=== PATIENT | male | born 1980 | race Caucasian/White ===

== ENCOUNTER 2020-06-06 22:02 | Emergency (ER) | payer MEDICAID ==
[~2020-06-06] VITALS: Ht 170.2 cm; Wt 95.4 kg
[2020-06-06] MEDS ORDERED: SOFO1TAB PO (22:38)
[2020-06-06 23:17] LABS: BASOPHILS % (AUTO) 0.6 % (0.0-2.0); EOSINOPHILS % (AUTO) 0.5 % (1.0-6.0); HEMATOCRIT 44.4 % (41-53); HEMOGLOBIN 15.1 g/dL (13.5-17.5); LYMPHOCYTES # (AUTO) 1.6 K/uL (1.0-4.8); LYMPHOCYTES % (AUTO) 21.1 % (22.0-44.0); MEAN CORPUSCULAR HEMOGLOBIN 31.3 pg (26.0-34.0); MEAN CORPUSCULAR HGB CONC 34.1 G/dL (31.0-37.0); MEAN CORPUSCULAR VOLUME 92 fL (80-100); MONOCYTES # (AUTO) 0.7 K/uL (0.1-1.0); MONOCYTES % (AUTO) 8.8 % (2.0-9.0); NEUTROPHILS # (AUTO) 5.3 K/uL (1.8-7.7); PLATELET COUNT (AUTO) 232 K/uL (150-450); RED BLOOD CELL COUNT(AUTO) 4.84 MIL/uL (4.50-5.90); RED CELL DISTRIBUTION WIDTH 13.7 % (11.5-14.5)
[2020-06-06 23:26] LABS: ANION GAP 8 mmol/L (8-16); CALCIUM, TOTAL 8.9 mg/dL (8.8-10.5); CARBON DIOXIDE 29 mmol/L (22-29); CHLORIDE 102 mmol/L (98-107); CREATININE 0.99 mg/dL (0.60-1.30); GLOMERULAR FILTR. RATE CALC > 60 mL/min (>60); GLUCOSE,RANDOM 105 mg/dL (70-110); POTASSIUM 3.9 mmol/L (3.5-5.1); SODIUM SERUM 139 mmol/L (136-145); UREA NITROGEN, BLOOD 14 mg/dL (7-18)
[2020-06-06 23:32] LABS: ALANINE AMINOTRANSFERASE 66 U/L (12-78); ALBUMIN 4.3 g/dL (3.4-5.0); ALKALINE PHOSPHATASE 92 U/L (46-116); ASPARTATE AMINOTRANSFERASE 51 U/L (15-37); BILIRUBIN,TOTAL 0.5 mg/dL (0.1-1.0); LIPASE 132 U/L (73-393); TOTAL PROTEIN, SERUM 8.2 g/dL (6.4-8.2)
[2020-06-06 23:40] LABS: B-TYPE NATRIURETIC PEPTIDE < 5 pg/mL (0-100)
[2020-06-07 01:29] VITALS: BP 145/89
== END 2020-06-07 02:29 | disposition home or self-care (01) ==
LOC: EMS 22:02
DX: R11.2 Nausea with vomiting, unspecified (principal); F22 Delusional disorders; F17.210 Nicotine dependence, cigarettes, uncomplicated; F11.90 Opioid use, unspecified, uncomplicated
CPT/HCPCS: 71045; 80053; 82550; 83690; 83880; 84484; 85025; 93005; 99285; G0480

== ENCOUNTER 2020-08-01 15:18 | Inpatient (IN) | payer MEDICAID ==
[~2020-08-01] VITALS: Ht 170.2 cm; Wt 90.2 kg
[~2020-08-01 15:18] MED LIST: SOFO1TAB PO
[2020-08-01] MEDS ORDERED: LORazepam 2 MG TABLET PO ONE (18:00)
[2020-08-01 19:19] LABS: BASOPHILS % (AUTO) 0.4 % (0.0-2.0); EOSINOPHILS % (AUTO) 1.2 % (1.0-6.0); HEMATOCRIT 44.9 % (41-53); HEMOGLOBIN 15.1 g/dL (13.5-17.5); LYMPHOCYTES # (AUTO) 2.3 K/uL (1.0-4.8); LYMPHOCYTES % (AUTO) 20.9 % (22.0-44.0); MEAN CORPUSCULAR HEMOGLOBIN 30.7 pg (26.0-34.0); MEAN CORPUSCULAR HGB CONC 33.7 G/dL (31.0-37.0); MEAN CORPUSCULAR VOLUME 91 fL (80-100); MONOCYTES # (AUTO) 0.9 K/uL (0.1-1.0); MONOCYTES % (AUTO) 8.4 % (2.0-9.0); NEUTROPHILS # (AUTO) 7.6 K/uL (1.8-7.7); NEUTROPHILS % (AUTO) 69.1 % (40.0-70.0); PLATELET COUNT (AUTO) 304 K/uL (150-450); RED BLOOD CELL COUNT(AUTO) 4.92 MIL/uL (4.50-5.90); RED CELL DISTRIBUTION WIDTH 13.7 % (11.5-14.5)
[2020-08-01 19:28] LABS: ANION GAP 12 mmol/L (8-16); CALCIUM, TOTAL 9.4 mg/dL (8.8-10.5); CARBON DIOXIDE 29 mmol/L (22-29); CHLORIDE 104 mmol/L (98-107); CREATININE 1.18 mg/dL (0.60-1.30); GLOMERULAR FILTR. RATE CALC > 60 mL/min (>60); GLUCOSE,RANDOM 107 mg/dL (70-110); POTASSIUM 4.8 mmol/L (3.5-5.1); SODIUM SERUM 145 mmol/L (136-145); UREA NITROGEN, BLOOD 18 mg/dL (7-18)
[2020-08-01] MEDS ORDERED: OLANZapine 5 MG TABLET PO ONE (19:30)
[2020-08-01 19:33] LABS: ALANINE AMINOTRANSFERASE 82 U/L (12-78); ALBUMIN 4.6 g/dL (3.4-5.0); ALKALINE PHOSPHATASE 103 U/L (46-116); ASPARTATE AMINOTRANSFERASE 38 U/L (15-37); BILIRUBIN,TOTAL 0.9 mg/dL (0.1-1.0); TOTAL PROTEIN, SERUM 8.4 g/dL (6.4-8.2)
[2020-08-01] MEDS ORDERED: HALOPERIDOL 5 MG TABLET PO PRN (19:45)
[2020-08-01] MEDS ORDERED: ZOLPIDEM TARTRATE 10 MG TABLET PO PRN (19:45)
[2020-08-01 20:46] LABS: APPEARANCE,URINE CLEAR (CLEAR); BILIRUBIN,URINE NEGATIVE (NEGATIVE); GLUCOSE, URINE (UA) NEGATIVE (NEGATIVE); KETONES,URINE NEGATIVE (NEGATIVE); LEUKOCYTE ESTERASE ,URINE NEGATIVE (NEGATIVE); NITRATE,URINE NEGATIVE (NEGATIVE); OCCULT BLOOD,URINE NEGATIVE (NEGATIVE); PROTEIN,URINE NEGATIVE (NEGATIVE)
[2020-08-01] MEDS ORDERED: LORazepam 2 MG/ML VIAL IM ONE (22:00)
[2020-08-01] MEDS ORDERED: DiphenhydrAMINE HCL 50 MG/ML VIAL IM ONE (22:00)
[2020-08-01] MEDS ORDERED: HALOPERIDOL LACTATE 5 MG/ML VIAL IM ONE (22:00)
[2020-08-01 22:42] LABS: COVID AG,FIA SOURCE NASOPHARYNGEAL
[2020-08-02] MEDS: LORazepam 2 MG TABLET PO PRN ×2 (07:02→12:22)
[2020-08-02] MEDS ORDERED: BENZOCAINE/MENTHOL LOZENGE PO PRN (10:00)
[2020-08-02] MEDS ORDERED: PETROLATUM,WHITE 28 GM JELLY TP PRN (10:00)
[2020-08-02] MEDS ORDERED: DOCUSATE SODIUM 100 MG CAPSULE PO PRN (10:00)
[2020-08-02] MEDS ORDERED: MAG HYDROX/AL HYDROX/SIMETH ES 30 ML SUSPENSION UDCUP PO PRN (10:00)
[2020-08-02] MEDS ORDERED: BACITRACIN 28 GM OINTMENT TP PRN (10:00)
[2020-08-02] MEDS ORDERED: OMEPRAZOLE 20 MG CAPSULE PO PRN (10:00)
[2020-08-02] MEDS ORDERED: MAGNESIUM HYDROXIDE SUSPENSION 30 ML UDCUP PO PRN (10:00)
[2020-08-02] MEDS ORDERED: ALBUTEROL SULFATE HFA 90 MCG/PUFF 8 GM INHALER IH PRN (10:00)
[2020-08-02] MEDS ORDERED: CloNIDine HCL 0.1 MG TABLET PO PRN (10:00)
[2020-08-02] MEDS ORDERED: ACETAMINOPHEN 325 MG TABLET PO PRN (10:00)
[2020-08-02] MEDS ORDERED: LOPERAMIDE HCL 2 MG CAPSULE PO PRN (10:00)
[2020-08-02] MEDS ORDERED: ONDANSETRON HCL 4 MG TABLET PO PRN (10:00)
[2020-08-02 10:31] VITALS: BP 119/75
[2020-08-02] MEDS: IBUPROFEN 600 MG TABLET PO PRN (12:21)
[2020-08-02 16:21] VITALS: BP 103/75
[2020-08-03 06:12] VITALS: BP 115/84
[2020-08-03 07:50] LABS: CHOL/HDL RATIO 4.6 (4.2-7.3)
[2020-08-03 08:25] VITALS: BP 103/64
[2020-08-03 16:32] VITALS: BP 112/69
[2020-08-04 08:19] VITALS: BP 110/66
[2020-08-04 16:12] VITALS: BP 109/65
[2020-08-04] MEDS: IBUPROFEN 600 MG TABLET PO PRN (21:55)
[2020-08-04] MEDS: LORazepam 2 MG TABLET PO PRN (21:55)
[2020-08-05 06:29] VITALS: BP 110/68
[2020-08-05 08:32] VITALS: BP 115/71
[2020-08-05] MEDS: LORazepam 2 MG TABLET PO PRN ×2 (15:27→20:33)
[2020-08-05 16:21] VITALS: BP 126/61
[2020-08-06 06:08] VITALS: BP 110/81
[2020-08-06 08:20] VITALS: BP 115/72
[2020-08-06 16:19] VITALS: BP 113/76
== END 2020-08-06 20:14 | disposition home or self-care (01) | DRG 750 ==
LOC: EMS 15:23 → B3A 22:00
PROVIDERS: ADMIT Psychiatry & Neurology Psychiatry; ATTEND Psychiatry & Neurology Psychiatry
DX: F25.9 Schizoaffective disorder, unspecified (principal); F22 Delusional disorders; R45.851 Suicidal ideations; F32.9 Major depressive disorder, single episode, unspecified; B19.20 Unspecified viral hepatitis C without hepatic coma; F17.210 Nicotine dependence, cigarettes, uncomplicated; F41.9 Anxiety disorder, unspecified; G47.00 Insomnia, unspecified; K59.00 Constipation, unspecified; F15.90 Other stimulant use, unspecified, uncomplicated; Z20.822 Contact with and (suspected) exposure to COVID-19; Z79.899 Other long term (current) drug therapy
CPT/HCPCS: 80053; 81003; 85025; 87426; 99285; G0480; J1200; J1630; J2060

== ENCOUNTER 2020-08-20 09:06 | Emergency (ER) | payer MEDICAID ==
[~2020-08-20] VITALS: Ht 167.6 cm; Wt 100.0 kg
[2020-08-20] MEDS ORDERED: OXYC20TA58 PO (09:28)
[2020-08-20] MEDS ORDERED: CLON-592 PO (09:28)
[2020-08-20] MEDS ORDERED: IBUP-2759 PO (09:28)
[2020-08-20 10:43] LABS: BASOPHILS % (AUTO) 0.3 % (0.0-2.0); EOSINOPHILS % (AUTO) 0.5 % (1.0-6.0); HEMATOCRIT 43.9 % (41-53); HEMOGLOBIN 14.9 g/dL (13.5-17.5); LYMPHOCYTES % (AUTO) 21.2 % (22.0-44.0); MEAN CORPUSCULAR HEMOGLOBIN 30.3 pg (26.0-34.0); MEAN CORPUSCULAR VOLUME 89 fL (80-100); MONOCYTES # (AUTO) 0.9 K/uL (0.1-1.0); MONOCYTES % (AUTO) 9.3 % (2.0-9.0); NEUTROPHILS # (AUTO) 6.5 K/uL (1.8-7.7); NEUTROPHILS % (AUTO) 68.7 % (40.0-70.0); PLATELET COUNT (AUTO) 272 K/uL (150-450); RED BLOOD CELL COUNT(AUTO) 4.94 MIL/uL (4.50-5.90)
[2020-08-20 10:53] LABS: ANION GAP 12 mmol/L (8-16); CALCIUM, TOTAL 9.1 mg/dL (8.8-10.5); CARBON DIOXIDE 24 mmol/L (22-29); CHLORIDE 100 mmol/L (98-107); CREATININE 0.88 mg/dL (0.60-1.30); GLOMERULAR FILTR. RATE CALC > 60 mL/min (>60); GLUCOSE,RANDOM 104 mg/dL (70-110); POTASSIUM 3.7 mmol/L (3.5-5.1); SODIUM SERUM 136 mmol/L (136-145); UREA NITROGEN, BLOOD 12 mg/dL (7-18)
[2020-08-20 10:57] LABS: ALANINE AMINOTRANSFERASE 87 U/L (12-78); ALBUMIN 4.9 g/dL (3.4-5.0); ALKALINE PHOSPHATASE 96 U/L (46-116); ASPARTATE AMINOTRANSFERASE 57 U/L (15-37); BILIRUBIN,TOTAL 1.7 mg/dL (0.1-1.0); TOTAL PROTEIN, SERUM 8.3 g/dL (6.4-8.2)
[2020-08-20 12:12] LABS: COVID AG,FIA SOURCE NASOPHARYNGEAL
[2020-08-20 14:24] VITALS: BP 138/87
== END 2020-08-20 14:29 | disposition home or self-care (01) ==
LOC: EMS 09:17
DX: F25.9 Schizoaffective disorder, unspecified (principal); Z20.822 Contact with and (suspected) exposure to COVID-19
CPT/HCPCS: 36415; 80053; 85025; 87426; 99284; G0480

== ENCOUNTER 2020-08-21 20:57 | Emergency (ER) | payer MEDICAID ==
[~2020-08-21] VITALS: Ht 167.6 cm; Wt 88.6 kg
[~2020-08-21 20:57] MED LIST changes: +CLON-592 PO; +IBUP-2759 PO; +OXYC20TA58 PO; -SOFO1TAB PO
[2020-08-21 21:00] VITALS: BP 145/80
[2020-08-21] MEDS ORDERED: OLANZapine 5 MG TABLET PO ONE (21:30)
== END 2020-08-21 21:55 | disposition home or self-care (01) ==
LOC: EMS 20:59
DX: F29 Unspecified psychosis not due to a substance or known physiological condition (principal); F41.9 Anxiety disorder, unspecified; F14.90 Cocaine use, unspecified, uncomplicated; F19.90 Other psychoactive substance use, unspecified, uncomplicated; F11.90 Opioid use, unspecified, uncomplicated
CPT/HCPCS: 99284; Z7502; Z7610

== ENCOUNTER 2020-12-24 19:31 | Inpatient (IN) | payer MEDICAID ==
[~2020-12-24] VITALS: Ht 167.6 cm; Wt 84.0 kg
[2020-12-24] MEDS ORDERED: SERT-158 PO (19:46)
[2020-12-24] MEDS ORDERED: QUET25TA PO (19:46)
[2020-12-24 21:23] LABS: BASOPHILS % (AUTO) 0.5 % (0.0-2.0); EOSINOPHILS % (AUTO) 0.7 % (1.0-6.0); HEMATOCRIT 44.2 % (41-53); HEMOGLOBIN 14.9 g/dL (13.5-17.5); LYMPHOCYTES % (AUTO) 27.2 % (22.0-44.0); MEAN CORPUSCULAR HEMOGLOBIN 31.1 pg (26.0-34.0); MEAN CORPUSCULAR HGB CONC 33.8 G/dL (31.0-37.0); MEAN CORPUSCULAR VOLUME 92 fL (80-100); MONOCYTES # (AUTO) 0.6 K/uL (0.1-1.0); MONOCYTES % (AUTO) 8.6 % (2.0-9.0); NEUTROPHILS # (AUTO) 4.5 K/uL (1.8-7.7); PLATELET COUNT (AUTO) 285 K/uL (150-450); RED CELL DISTRIBUTION WIDTH 13.8 % (11.5-14.5)
[2020-12-24 21:34] LABS: ANION GAP 13 mmol/L (8-16); CARBON DIOXIDE 26 mmol/L (22-29); CHLORIDE 102 mmol/L (98-107); CREATININE 1.21 mg/dL (0.60-1.30); GLOMERULAR FILTR. RATE CALC > 60 mL/min (>60); GLUCOSE,RANDOM 155 mg/dL (70-110); POTASSIUM 4.2 mmol/L (3.5-5.1); SODIUM SERUM 141 mmol/L (136-145); UREA NITROGEN, BLOOD 14 mg/dL (7-18)
[2020-12-24 21:40] LABS: ALANINE AMINOTRANSFERASE 43 U/L (12-78); ALBUMIN 4.5 g/dL (3.4-5.0); ALKALINE PHOSPHATASE 82 U/L (46-116); ASPARTATE AMINOTRANSFERASE 35 U/L (15-37); BILIRUBIN,TOTAL 0.8 mg/dL (0.1-1.0)
[2020-12-24] MEDS ORDERED: HALOPERIDOL LACTATE 5 MG/ML VIAL IM ONE (22:15)
[2020-12-24] MEDS ORDERED: LORazepam 2 MG/ML VIAL IM ONE (22:15)
[2020-12-24] MEDS ORDERED: ZOLPIDEM TARTRATE 10 MG TABLET PO PRN (22:15)
[2020-12-24] MEDS: LORazepam 2 MG TABLET PO PRN (22:48)
[2020-12-24] MEDS: HALOPERIDOL 5 MG TABLET PO PRN (22:48)
[2020-12-24 23:25] LABS: APPEARANCE,URINE CLEAR (CLEAR); BILIRUBIN,URINE NEGATIVE (NEGATIVE); GLUCOSE, URINE (UA) NEGATIVE (NEGATIVE); KETONES,URINE NEGATIVE (NEGATIVE); LEUKOCYTE ESTERASE ,URINE NEGATIVE (NEGATIVE); NITRATE,URINE NEGATIVE (NEGATIVE); OCCULT BLOOD,URINE NEGATIVE (NEGATIVE); PH,URINE 5.5 (5.0-8.0); PROTEIN,URINE NEGATIVE (NEGATIVE); UROBILINOGEN,URINE 0.2 mg/dL (<=1.0)
[2020-12-24 23:29] LABS: AMPHET/METH SCREEN,URINE POSITIVE (NEGATIVE); BARBITURATE SCREEN, URINE NEGATIVE (NEGATIVE); BENZODIAZEPINES SCREEN,URINE NEGATIVE (NEGATIVE); CANNABINOID SCREEN,URINE NEGATIVE (NEGATIVE); COCAINE SCREEN,URINE NEGATIVE (NEGATIVE); METHADONE SCREEN, URINE NEGATIVE (NEGATIVE); OPIATE SCREEN,URINE NEGATIVE (NEGATIVE)
[2020-12-24 23:31] LABS: PHENCYCLIDINE SCREEN,URINE NEGATIVE (NEGATIVE)
[2020-12-25] MEDS ORDERED: LORazepam 2 MG/ML VIAL IM ONE (00:15)
[2020-12-25] MEDS ORDERED: HALOPERIDOL LACTATE 5 MG/ML VIAL IM ONE (00:15)
[2020-12-25] MEDS ORDERED: DiphenhydrAMINE HCL 50 MG/ML VIAL IM ONE (00:15)
[2020-12-25 02:04] LABS: COVID AG,FIA SOURCE NASOPHARYNGEAL
[2020-12-25 04:33] LABS: CHOL/HDL RATIO 3.5 (4.2-7.3); CHOLESTEROL 182 mg/dL (131-200); HDL CHOLESTEROL 52 mg/dL (40-60); LDL CHOL (CALC.) 121 mg/dL (0-130); TRIGLYCERIDES 45 mg/dL (15-150)
[2020-12-25 12:53] VITALS: BP 135/79
[2020-12-25 18:29] VITALS: BP 126/81
[2020-12-26 08:50] VITALS: BP 97/64
[2020-12-26] MEDS ORDERED: ACETAMINOPHEN 325 MG TABLET PO PRN (15:30)
[2020-12-26] MEDS ORDERED: MAG HYDROX/AL HYDROX/SIMETH ES 30 ML SUSPENSION UDCUP PO PRN (15:30)
[2020-12-26] MEDS ORDERED: PROMETHAZINE HCL 25 MG TABLET PO PRN (15:30)
[2020-12-26] MEDS ORDERED: LOPERAMIDE HCL 2 MG CAPSULE PO PRN (15:30)
[2020-12-26] MEDS ORDERED: GuaiFENesin/D-METHORPHAN [SUGAR-FREE] 200-20MG/10 ML SYRUP UDCUP PO PRN (15:30)
[2020-12-26] MEDS ORDERED: HydrOXYzine PAMOATE 50 MG CAPSULE PO PRN (15:30)
[2020-12-26] MEDS ORDERED: OMEGA-3/DHA/EPA/FISH OIL 1,000 MG CAPSULE PO ONE (15:30)
[2020-12-26] MEDS ORDERED: MAGNESIUM HYDROXIDE SUSPENSION 30 ML UDCUP PO PRN (15:30)
[2020-12-26] MEDS ORDERED: NALTREXONE HCL 50 MG TABLET PO ONE (15:30)
[2020-12-26] MEDS ORDERED: TUBERCULIN, PURIFIED PROTEIN DERIVATIVE 5 TU/0.1 ML SYRINGE ID ONE (15:30)
[2020-12-26 16:22] VITALS: BP 102/67
[2020-12-26] MEDS: THIAMINE 100 MG TABLET PO SCH (16:25)
[2020-12-26] MEDS: MELATONIN 5 MG TABLET PO SCH (20:44)
[2020-12-26] MEDS ORDERED: OLANZapine 5 MG RAPDIS TABLET PO SCH (21:00)
[2020-12-27 08:00] VITALS: BP 137/77
[2020-12-27] MEDS ORDERED: BuPROPion HCL XL 150 MG ER TABLET PO SCH (09:00)
[2020-12-27] MEDS: NALTREXONE HCL 50 MG TABLET PO SCH (10:38)
[2020-12-27] MEDS: MULTIVITAMINS WITH MINERALS, THERAPEUTIC TABLET PO SCH (10:38)
[2020-12-27] MEDS: THIAMINE 100 MG TABLET PO SCH ×2 (10:38→16:15)
[2020-12-27] MEDS: FOLIC ACID 1 MG TABLET PO SCH (10:38)
[2020-12-27] MEDS: OMEGA-3/DHA/EPA/FISH OIL 1,000 MG CAPSULE PO SCH (10:38)
[2020-12-27] MEDS: HALOPERIDOL 5 MG TABLET PO PRN (16:15)
[2020-12-27 16:58] VITALS: BP 104/62
[2020-12-27] MEDS: MELATONIN 5 MG TABLET PO SCH (20:11)
[2020-12-27] MEDS: DIVALPROEX SODIUM 500 MG ER TABLET PO SCH (20:11)
[2020-12-27] MEDS: OLANZapine 10 MG RAPDIS TABLET PO SCH (20:11)
[2020-12-28 08:00] VITALS: BP 105/64
[2020-12-28] MEDS: FOLIC ACID 1 MG TABLET PO SCH (09:28)
[2020-12-28] MEDS: NALTREXONE HCL 50 MG TABLET PO SCH (09:28)
[2020-12-28] MEDS: THIAMINE 100 MG TABLET PO SCH ×2 (09:28→16:46)
[2020-12-28] MEDS: OMEGA-3/DHA/EPA/FISH OIL 1,000 MG CAPSULE PO SCH (09:29)
[2020-12-28] MEDS: MULTIVITAMINS WITH MINERALS, THERAPEUTIC TABLET PO SCH (09:29)
[2020-12-28] MEDS: LORazepam 2 MG TABLET PO PRN (09:31)
[2020-12-28 16:18] VITALS: BP 122/78
[2020-12-28] MEDS: HALOPERIDOL 5 MG TABLET PO PRN (16:46)
[2020-12-28] MEDS: MELATONIN 5 MG TABLET PO SCH (20:24)
[2020-12-28] MEDS: OLANZapine 10 MG RAPDIS TABLET PO SCH (20:24)
[2020-12-28] MEDS: DIVALPROEX SODIUM 500 MG ER TABLET PO SCH (20:24)
[2020-12-29] MEDS: NALTREXONE HCL 50 MG TABLET PO SCH (08:13)
[2020-12-29] MEDS: FOLIC ACID 1 MG TABLET PO SCH (08:13)
[2020-12-29] MEDS: MULTIVITAMINS WITH MINERALS, THERAPEUTIC TABLET PO SCH (08:13)
[2020-12-29] MEDS: THIAMINE 100 MG TABLET PO SCH ×2 (08:13→18:21)
[2020-12-29] MEDS: OMEGA-3/DHA/EPA/FISH OIL 1,000 MG CAPSULE PO SCH (08:13)
[2020-12-29] MEDS: LORazepam 2 MG TABLET PO PRN ×2 (08:17→18:22)
[2020-12-29] MEDS: HALOPERIDOL 5 MG TABLET PO PRN (08:17)
[2020-12-29 08:33] VITALS: BP 114/74
[2020-12-29 16:44] VITALS: BP 143/95
[2020-12-29] MEDS: DIVALPROEX SODIUM 500 MG ER TABLET PO SCH (21:44)
[2020-12-29] MEDS: MELATONIN 5 MG TABLET PO SCH (21:45)
[2020-12-29] MEDS: OLANZapine 10 MG RAPDIS TABLET PO SCH (21:45)
[2020-12-30 08:34] VITALS: BP 138/86
[2020-12-30] MEDS: HALOPERIDOL 5 MG TABLET PO PRN (08:39)
[2020-12-30] MEDS: NALTREXONE HCL 50 MG TABLET PO SCH (08:39)
[2020-12-30] MEDS: OMEGA-3/DHA/EPA/FISH OIL 1,000 MG CAPSULE PO SCH (08:39)
[2020-12-30] MEDS: FOLIC ACID 1 MG TABLET PO SCH (08:39)
[2020-12-30] MEDS: THIAMINE 100 MG TABLET PO SCH ×2 (08:39→16:24)
[2020-12-30] MEDS: MULTIVITAMINS WITH MINERALS, THERAPEUTIC TABLET PO SCH (08:39)
[2020-12-30] MEDS: LORazepam 2 MG TABLET PO PRN (08:46)
[2020-12-30 17:02] VITALS: BP 110/73
[2020-12-30] MEDS: DIVALPROEX SODIUM 500 MG ER TABLET PO SCH (20:40)
[2020-12-30] MEDS: MELATONIN 5 MG TABLET PO SCH (20:40)
[2020-12-30] MEDS: OLANZapine 10 MG RAPDIS TABLET PO SCH (20:42)
[2020-12-31 08:19] VITALS: BP 111/82
[2020-12-31] MEDS: THIAMINE 100 MG TABLET PO SCH ×2 (09:20→16:06)
[2020-12-31] MEDS: LORazepam 2 MG TABLET PO PRN (09:20)
[2020-12-31] MEDS: HALOPERIDOL 5 MG TABLET PO PRN ×2 (09:20→15:53)
[2020-12-31] MEDS: OMEGA-3/DHA/EPA/FISH OIL 1,000 MG CAPSULE PO SCH (09:20)
[2020-12-31] MEDS: MULTIVITAMINS WITH MINERALS, THERAPEUTIC TABLET PO SCH (09:20)
[2020-12-31] MEDS: NALTREXONE HCL 50 MG TABLET PO SCH (09:20)
[2020-12-31] MEDS: FOLIC ACID 1 MG TABLET PO SCH (09:20)
[2020-12-31] MEDS: DIVALPROEX SODIUM 500 MG ER TABLET PO SCH (20:27)
[2020-12-31] MEDS: MELATONIN 5 MG TABLET PO SCH (20:27)
[2020-12-31] MEDS: OLANZapine 10 MG RAPDIS TABLET PO SCH (20:28)
[2021-01-01] MEDS: OMEGA-3/DHA/EPA/FISH OIL 1,000 MG CAPSULE PO SCH (08:08)
[2021-01-01] MEDS: NALTREXONE HCL 50 MG TABLET PO SCH (08:08)
[2021-01-01] MEDS: LORazepam 2 MG TABLET PO PRN (08:08)
[2021-01-01] MEDS: THIAMINE 100 MG TABLET PO SCH ×2 (08:08→16:20)
[2021-01-01] MEDS: FOLIC ACID 1 MG TABLET PO SCH (08:08)
[2021-01-01] MEDS: FLUoxetine HCL 20 MG CAPSULE PO SCH (08:08)
[2021-01-01] MEDS: HALOPERIDOL 5 MG TABLET PO PRN ×2 (08:08→16:20)
[2021-01-01] MEDS: MULTIVITAMINS WITH MINERALS, THERAPEUTIC TABLET PO SCH (08:08)
[2021-01-01 08:27] VITALS: BP 139/88
[2021-01-01 16:18] VITALS: BP 123/76
[2021-01-01] MEDS: MELATONIN 5 MG TABLET PO SCH (20:17)
[2021-01-01] MEDS: DIVALPROEX SODIUM 500 MG ER TABLET PO SCH (20:17)
[2021-01-01] MEDS: OLANZapine 10 MG RAPDIS TABLET PO SCH (20:17)
[2021-01-02] MEDS: THIAMINE 100 MG TABLET PO SCH ×2 (08:31→16:30)
[2021-01-02] MEDS: FOLIC ACID 1 MG TABLET PO SCH (08:31)
[2021-01-02] MEDS: FLUoxetine HCL 20 MG CAPSULE PO SCH (08:31)
[2021-01-02] MEDS: HALOPERIDOL 5 MG TABLET PO PRN ×2 (08:32→16:30)
[2021-01-02] MEDS: OMEGA-3/DHA/EPA/FISH OIL 1,000 MG CAPSULE PO SCH (08:32)
[2021-01-02] MEDS: NALTREXONE HCL 50 MG TABLET PO SCH (08:32)
[2021-01-02] MEDS: LORazepam 2 MG TABLET PO PRN (08:32)
[2021-01-02] MEDS: MULTIVITAMINS WITH MINERALS, THERAPEUTIC TABLET PO SCH (08:32)
[2021-01-02 08:38] VITALS: BP 101/67
[2021-01-02 13:09] LABS: COVID AG,FIA SOURCE NASOPHARYNGEAL
[2021-01-02] MEDS: OLANZapine 10 MG RAPDIS TABLET PO SCH ×2 (20:17→20:35)
[2021-01-02] MEDS: MELATONIN 5 MG TABLET PO SCH ×2 (20:17→20:34)
[2021-01-02] MEDS: DIVALPROEX SODIUM 500 MG ER TABLET PO SCH ×2 (20:18→20:34)
[2021-01-03] MEDS: LORazepam 2 MG TABLET PO PRN (07:58)
[2021-01-03] MEDS: THIAMINE 100 MG TABLET PO SCH ×2 (07:59→16:50)
[2021-01-03] MEDS: FOLIC ACID 1 MG TABLET PO SCH (07:59)
[2021-01-03] MEDS: MULTIVITAMINS WITH MINERALS, THERAPEUTIC TABLET PO SCH (07:59)
[2021-01-03] MEDS: OMEGA-3/DHA/EPA/FISH OIL 1,000 MG CAPSULE PO SCH (07:59)
[2021-01-03] MEDS: NALTREXONE HCL 50 MG TABLET PO SCH (07:59)
[2021-01-03] MEDS: FLUoxetine HCL 20 MG CAPSULE PO SCH (07:59)
[2021-01-03] MEDS ORDERED: OLAN10TA26 PO (15:49)
[2021-01-03] MEDS ORDERED: OMEG-135 PO (15:49)
[2021-01-03] MEDS ORDERED: MELA5TAB40 PO (15:49)
[2021-01-03] MEDS ORDERED: DIVA-80 PO (15:49)
[2021-01-03] MEDS ORDERED: NALT50TA PO (15:49)
[2021-01-03] MEDS ORDERED: FLUO20CA36 PO (15:49)
[2021-01-03] MEDS: HALOPERIDOL 5 MG TABLET PO PRN (16:50)
[2021-01-03] MEDS: MELATONIN 5 MG TABLET PO SCH (20:27)
[2021-01-03] MEDS: OLANZapine 10 MG RAPDIS TABLET PO SCH (20:27)
[2021-01-03] MEDS: DIVALPROEX SODIUM 500 MG ER TABLET PO SCH (20:27)
[2021-01-04] MEDS: FOLIC ACID 1 MG TABLET PO SCH (07:55)
[2021-01-04] MEDS: FLUoxetine HCL 20 MG CAPSULE PO SCH (07:55)
[2021-01-04] MEDS: OMEGA-3/DHA/EPA/FISH OIL 1,000 MG CAPSULE PO SCH (07:55)
[2021-01-04] MEDS: THIAMINE 100 MG TABLET PO SCH (07:55)
[2021-01-04] MEDS: MULTIVITAMINS WITH MINERALS, THERAPEUTIC TABLET PO SCH (07:55)
[2021-01-04] MEDS: NALTREXONE HCL 50 MG TABLET PO SCH (07:56)
[2021-01-04 08:28] VITALS: BP 121/87
== END 2021-01-04 14:30 | disposition home or self-care (01) | DRG 750 ==
LOC: EMS 19:35 → 3EC 12-25 11:09
PROVIDERS: ADMIT Psychiatry & Neurology Psychiatry; ATTEND Psychiatry & Neurology Psychiatry
DX: F25.9 Schizoaffective disorder, unspecified (principal); Z59.0 Homelessness; B19.20 Unspecified viral hepatitis C without hepatic coma; F15.90 Other stimulant use, unspecified, uncomplicated; Z20.822 Contact with and (suspected) exposure to COVID-19; F17.210 Nicotine dependence, cigarettes, uncomplicated; F43.10 Post-traumatic stress disorder, unspecified; Z55.9 Problems related to education and literacy, unspecified; Z65.3 Problems related to other legal circumstances; Z86.16 Personal history of COVID-19; Z91.14 Patient's other noncompliance with medication regimen; Z91.19 Patient's noncompliance with other medical treatment and regimen; Z79.899 Other long term (current) drug therapy
CPT/HCPCS: 80053; 80061; 80164; 81003; 83036; 85025; 99285; G0480; J1200; J1630; J2060; Q9967

== ENCOUNTER 2022-04-25 18:23 | Inpatient (IN) | payer MEDICAID ==
[~2022-04-25] VITALS: Ht 167.6 cm; Wt 100.5 kg
[~2022-04-25 18:23] MED LIST changes: -CLON-592 PO; +DIVA-80 PO; +FLUO20CA36 PO; -IBUP-2759 PO; +MELA5TAB40 PO; +NALT50TA PO; +OLAN10TA26 PO; +OMEG-135 PO; -OXYC20TA58 PO
[2022-04-25] MEDS ORDERED: ZOLPIDEM TARTRATE 10 MG TABLET PO PRN (19:15)
[2022-04-25] MEDS ORDERED: HALOPERIDOL 5 MG TABLET PO PRN (19:15)
[2022-04-25 19:42] VITALS: BP 149/98
[2022-04-25] MEDS ORDERED: INFLUENZA VIRUS VACCINE QVS 2022-23 (6MO+)/PF 60 MCG/0.5 ML SYRINGE IM. ONE (19:45)
[2022-04-25] MEDS ORDERED: HYDR50CA7 PO (20:35)
[2022-04-25] MEDS ORDERED: SERT-162 PO (20:35)
[2022-04-25 20:46] LABS: GLUCOMETER DEV NAME(LOC) POC.BV
[2022-04-25 21:17] VITALS: BP 149/98
[2022-04-26] MEDS: LORazepam 2 MG TABLET PO PRN ×2 (04:14→08:21)
[2022-04-26 08:09] VITALS: BP 154/91
[2022-04-26] MEDS: FLUoxetine HCL 20 MG CAPSULE PO SCH (11:30)
[2022-04-26] MEDS: OMEGA-3/DHA/EPA/FISH OIL 1,000 MG CAPSULE PO SCH (11:30)
[2022-04-26] MEDS ORDERED: MAG HYDROX/AL HYDROX/SIMETH ES 30 ML SUSPENSION UDCUP PO PRN (16:15)
[2022-04-26] MEDS ORDERED: DOCUSATE SODIUM 100 MG CAPSULE PO PRN (16:15)
[2022-04-26] MEDS ORDERED: NICOTINE 14 MG/24 HOUR PATCH TD PRN (16:15)
[2022-04-26] MEDS ORDERED: CloNIDine HCL 0.1 MG TABLET PO PRN (16:15)
[2022-04-26] MEDS ORDERED: GuaiFENesin/D-METHORPHAN [SUGAR-FREE] 200-20MG/10 ML SYRUP UDCUP PO PRN (16:15)
[2022-04-26] MEDS ORDERED: ACETAMINOPHEN 325 MG TABLET PO PRN (16:15)
[2022-04-26] MEDS ORDERED: ONDANSETRON HCL 4 MG TABLET PO PRN (16:15)
[2022-04-26] MEDS ORDERED: PETROLATUM,WHITE 28 GM JELLY TP PRN (16:15)
[2022-04-26] MEDS ORDERED: LOPERAMIDE HCL 2 MG CAPSULE PO PRN (16:15)
[2022-04-26] MEDS ORDERED: IBUPROFEN 400 MG TABLET PO PRN (16:15)
[2022-04-26] MEDS ORDERED: MAGNESIUM HYDROXIDE SUSPENSION 30 ML UDCUP PO PRN (16:15)
[2022-04-26] MEDS ORDERED: ALBUTEROL SULFATE HFA 90 MCG/PUFF 8 GM INHALER IH PRN (16:15)
[2022-04-26] MEDS: AmLODIPine BESYLATE 5 MG TABLET PO SCH (16:55)
[2022-04-26] MEDS: MELATONIN 5 MG TABLET PO SCH (20:19)
[2022-04-26] MEDS: OLANZapine 10 MG TABLET PO SCH (20:19)
[2022-04-26] MEDS: DIVALPROEX SODIUM 500 MG ER TABLET PO SCH (20:19)
[2022-04-27 07:42] LABS: BASOPHILS % (AUTO) 0.5 % (0.0-2.0); EOSINOPHILS % (AUTO) 3.2 % (1.0-6.0); HEMATOCRIT 44.7 % (41-53); HEMOGLOBIN 15.1 g/dL (13.5-17.5); LYMPHOCYTES # (AUTO) 1.9 K/uL (1.0-4.8); LYMPHOCYTES % (AUTO) 28.6 % (22.0-44.0); MEAN CORPUSCULAR HGB CONC 33.7 G/dL (31.0-37.0); MEAN CORPUSCULAR VOLUME 89 fL (80-100); MONOCYTES # (AUTO) 0.6 K/uL (0.1-1.0); MONOCYTES % (AUTO) 8.4 % (2.0-9.0); NEUTROPHILS % (AUTO) 59.3 % (40.0-70.0); PLATELET COUNT (AUTO) 184 K/uL (150-450); RED BLOOD CELL COUNT(AUTO) 5.01 MIL/uL (4.50-5.90); RED CELL DISTRIBUTION WIDTH 14.2 % (11.5-14.5)
[2022-04-27 08:01] LABS: ALANINE AMINOTRANSFERASE 56 U/L (12-78); ALBUMIN 3.7 g/dL (3.4-5.0); ALKALINE PHOSPHATASE 73 U/L (46-116); ANION GAP 7 mmol/L (8-16); ASPARTATE AMINOTRANSFERASE 42 U/L (15-37); BILIRUBIN,TOTAL 0.8 mg/dL (0.1-1.0); CALCIUM, TOTAL 8.4 mg/dL (8.8-10.5); CARBON DIOXIDE 28 mmol/L (22-29); CHLORIDE 110 mmol/L (98-107); CHOLESTEROL 184 mg/dL (131-200); CREATININE 0.85 mg/dL (0.60-1.30); GLOMERULAR FILTR. RATE CALC > 60 mL/min (>60); GLUCOSE,RANDOM 92 mg/dL (70-110); HDL CHOLESTEROL 37 mg/dL (40-60); LDL CHOL (CALC.) 122 mg/dL (0-130); POTASSIUM 4.4 mmol/L (3.5-5.1); SODIUM SERUM 145 mmol/L (136-145); TOTAL PROTEIN, SERUM 6.7 g/dL (6.4-8.2); TRIGLYCERIDES 126 mg/dL (15-150); UREA NITROGEN, BLOOD 18 mg/dL (7-18)
[2022-04-27 08:22] LABS: FREE T4 (FREE THYROXINE) 1.44 ng/dL (0.76-1.46); THYROID STIMULATING HORMONE 1.59 uIU/mL (0.36-3.74)
[2022-04-27 08:26] VITALS: BP 102/68
[2022-04-27] MEDS: OMEGA-3/DHA/EPA/FISH OIL 1,000 MG CAPSULE PO SCH (09:01)
[2022-04-27] MEDS: AmLODIPine BESYLATE 5 MG TABLET PO SCH (09:01)
[2022-04-27] MEDS: FLUoxetine HCL 20 MG CAPSULE PO SCH (09:01)
[2022-04-27 16:16] VITALS: BP 112/60
[2022-04-27 21:06] VITALS: BP 113/60
[2022-04-27] MEDS: OLANZapine 10 MG TABLET PO SCH (21:10)
[2022-04-27] MEDS: DIVALPROEX SODIUM 500 MG ER TABLET PO SCH (21:10)
[2022-04-27] MEDS: MELATONIN 5 MG TABLET PO SCH (21:10)
[2022-04-28 08:16] VITALS: BP 127/79
[2022-04-28] MEDS: AmLODIPine BESYLATE 5 MG TABLET PO SCH (09:25)
[2022-04-28] MEDS: FLUoxetine HCL 20 MG CAPSULE PO SCH (09:25)
[2022-04-28] MEDS: OMEGA-3/DHA/EPA/FISH OIL 1,000 MG CAPSULE PO SCH (09:25)
[2022-04-28 11:22] LABS: GLUCOMETER DEV NAME(LOC) POC.BV
[2022-04-28] MEDS ORDERED: OMEG-135 PO (12:29)
[2022-04-28] MEDS ORDERED: OLAN10 PO (12:29)
[2022-04-28] MEDS ORDERED: MELA5TAB40 PO (12:29)
[2022-04-28] MEDS ORDERED: DIVA-80 PO (12:29)
[2022-04-28] MEDS ORDERED: FLUO20CA36 PO (12:29)
[2022-04-29 07:30] LABS: APPEARANCE,URINE CLEAR (CLEAR); BILIRUBIN,URINE NEGATIVE (NEGATIVE); GLUCOSE, URINE (UA) NEGATIVE (NEGATIVE); KETONES,URINE NEGATIVE (NEGATIVE); LEUKOCYTE ESTERASE ,URINE NEGATIVE (NEGATIVE); NITRATE,URINE NEGATIVE (NEGATIVE); OCCULT BLOOD,URINE NEGATIVE (NEGATIVE); PROTEIN,URINE NEGATIVE (NEGATIVE); SPECIFIC GRAVITIY, URINE 1.005 (1.003-1.030); UROBILINOGEN,URINE <=1.0 mg/dL (<=1.0)
[2022-04-29 07:43] LABS: AMPHET/METH SCREEN,URINE POSITIVE (NEGATIVE); BARBITURATE SCREEN, URINE NEGATIVE (NEGATIVE); BENZODIAZEPINES SCREEN,URINE NEGATIVE (NEGATIVE); CANNABINOID SCREEN,URINE NEGATIVE (NEGATIVE); COCAINE SCREEN,URINE NEGATIVE (NEGATIVE); METHADONE SCREEN, URINE NEGATIVE (NEGATIVE); OPIATE SCREEN,URINE NEGATIVE (NEGATIVE); PHENCYCLIDINE SCREEN,URINE NEGATIVE (NEGATIVE)
== END 2022-04-28 14:45 | disposition home or self-care (01) | DRG 750 ==
LOC: B3A 19:24 → B2S 23:42
PROVIDERS: ADMIT Psychiatry & Neurology Psychiatry; ATTEND Psychiatry & Neurology Psychiatry
DX: F25.1 Schizoaffective disorder, depressive type (principal); R45.851 Suicidal ideations; B19.20 Unspecified viral hepatitis C without hepatic coma; Z20.822 Contact with and (suspected) exposure to COVID-19; E78.5 Hyperlipidemia, unspecified; F19.10 Other psychoactive substance abuse, uncomplicated; F41.9 Anxiety disorder, unspecified; I10 Essential (primary) hypertension; Z79.899 Other long term (current) drug therapy; Z91.51 Personal history of suicidal behavior
CPT/HCPCS: 80053; 80061; 80307; 81003; 83036; 84439; 84443; 85025; 90686; Q9967

== ENCOUNTER 2023-05-18 02:17 | Inpatient (IN) | payer MEDICAID ==
[~2023-05-18] VITALS: Ht 76.2 cm; Wt 103.9 kg
[~2023-05-18 02:17] MED LIST changes: -DIVA-80 PO; +DIVA500T53 PO; -NALT50TA PO; +OLAN10 PO; -OLAN10TA26 PO
[2023-05-18 03:01] LABS: COVID AG,FIA SOURCE NASAL SWAB
[2023-05-18 03:16] LABS: SARS-COV2 (COVID) ANTIGEN,FIA Negative (Negative)
[2023-05-18 03:36] LABS: BASOPHILS % (AUTO) 0.8 % (0.0-2.0); EOSINOPHILS % (AUTO) 0.1 % (1.0-6.0); HEMATOCRIT 45.5 % (41-53); HEMOGLOBIN 15.2 g/dL (13.5-17.5); LYMPHOCYTES # (AUTO) 2.1 K/uL (1.0-4.8); LYMPHOCYTES % (AUTO) 15.6 % (22.0-44.0); MEAN CORPUSCULAR HEMOGLOBIN 29.6 pg (26.0-34.0); MEAN CORPUSCULAR HGB CONC 33.4 G/dL (31.0-37.0); MEAN CORPUSCULAR VOLUME 89 fL (80-100); MONOCYTES # (AUTO) 1.3 K/uL (0.1-1.0); NEUTROPHILS # (AUTO) 9.9 K/uL (1.8-7.7); NEUTROPHILS % (AUTO) 73.5 % (40.0-70.0); PLATELET COUNT (AUTO) 304 K/uL (150-450); RED BLOOD CELL COUNT(AUTO) 5.14 MIL/uL (4.50-5.90); RED CELL DISTRIBUTION WIDTH 13.5 % (11.5-14.5); WHITE BLOOD COUNT (AUTO) 13.4 K/uL (4.5-11.0)
[2023-05-18 03:45] LABS: ALCOHOL, BLOOD (SERUM) < 3 mg/dL (0-10)
[2023-05-18 03:51] LABS: ANION GAP 14 mmol/L (8-16); CALCIUM, TOTAL 9.7 mg/dL (8.8-10.5); CARBON DIOXIDE 24 mmol/L (22-29); CHLORIDE 99 mmol/L (98-107); CREATININE 1.35 mg/dL (0.60-1.30); GLOMERULAR FILTR. RATE CALC 57 mL/min (>60); GLUCOSE,RANDOM 114 mg/dL (70-110); POTASSIUM 3.7 mmol/L (3.5-5.1); SODIUM SERUM 137 mmol/L (136-145); UREA NITROGEN, BLOOD 22 mg/dL (7-18)
[2023-05-18 03:55] LABS: ALANINE AMINOTRANSFERASE 137 U/L (12-78); ALBUMIN 5.2 g/dL (3.4-5.0); ALKALINE PHOSPHATASE 75 U/L (46-116); ASPARTATE AMINOTRANSFERASE 111 U/L (15-37); BILIRUBIN,TOTAL 1.9 mg/dL (0.1-1.0); TOTAL PROTEIN, SERUM 8.6 g/dL (6.4-8.2)
[2023-05-18] MEDS ORDERED: OLANZapine 5 MG TABLET PO ONE (04:15)
[2023-05-18] MEDS ORDERED: LORazepam 2 MG TABLET PO ONE (04:15)
[2023-05-18] MEDS ORDERED: DiphenhydrAMINE HCL 25 MG CAPSULE PO ONE (04:15)
[2023-05-18] MEDS ORDERED: ZIPRASIDONE MESYLATE 20 MG/VIAL IM ONE (04:45)
[2023-05-18] MEDS ORDERED: LORazepam 2 MG/ML VIAL IM ONE (04:45)
[2023-05-18] MEDS ORDERED: ZOLPIDEM TARTRATE 10 MG TABLET PO PRN (05:00)
[2023-05-18] MEDS ORDERED: HALOPERIDOL 5 MG TABLET PO PRN (05:00)
[2023-05-18] MEDS ORDERED: LORazepam 2 MG TABLET PO PRN (05:00)
[2023-05-18 18:07] LABS: APPEARANCE,URINE CLEAR (CLEAR); BILIRUBIN,URINE NEGATIVE (NEGATIVE); COLOR,URINE YELLOW (YELLOW); GLUCOSE, URINE (UA) NEGATIVE (NEGATIVE); LEUKOCYTE ESTERASE ,URINE NEGATIVE (NEGATIVE); NITRATE,URINE NEGATIVE (NEGATIVE); OCCULT BLOOD,URINE NEGATIVE (NEGATIVE); PH,URINE 5.5 (5.0-8.0); PH,URINE DRUG SCREEN 5.5 (5.0-8.0); PROTEIN,URINE 30-70 mg/dL (NEGATIVE); SPECIFIC GRAVITIY, URINE 1.028 (1.003-1.030); UROBILINOGEN,URINE <=1.0 mg/dL (<=1.0)
[2023-05-18 18:10] LABS: ALCOHOL, URINE DRUG SCREEN NEGATIVE (NEGATIVE); AMPHET/METH SCREEN,URINE POSITIVE (NEGATIVE); BARBITURATE SCREEN, URINE NEGATIVE (NEGATIVE); BENZODIAZEPINES SCREEN,URINE NEGATIVE (NEGATIVE); CANNABINOID SCREEN,URINE NEGATIVE (NEGATIVE); COCAINE SCREEN,URINE NEGATIVE (NEGATIVE); METHADONE SCREEN, URINE NEGATIVE (NEGATIVE); OPIATE SCREEN,URINE NEGATIVE (NEGATIVE); PHENCYCLIDINE SCREEN,URINE NEGATIVE (NEGATIVE)
[2023-05-19] MEDS ORDERED: OLANZapine 5 MG TABLET PO ONE (07:00)
[2023-05-19 12:37] VITALS: BP 138/95; PULSE 107; RESP 20; TEMP 96.8; O2SAT 98
[2023-05-19] MEDS ORDERED: INFLUENZA VIRUS VACCINE QVS 2023-24 (6MO+)/PF 60 MCG/0.5 ML SYRINGE IM. ONE (13:15)
[2023-05-19 20:10] VITALS: BP 107/60; PULSE 95; RESP 19; TEMP 97.8; O2SAT 99
[2023-05-20 08:12] VITALS: BP 107/63; PULSE 92; RESP 16; TEMP 97.9; O2SAT 96
[2023-05-20] MEDS: OLANZapine 5 MG TABLET PO SCH (11:12)
[2023-05-20] MEDS ORDERED: MAG HYDROX/ALUMINUM HYD/SIMETH ES 30 ML SUSPENSION UDCUP PO PRN (15:30)
[2023-05-20] MEDS ORDERED: CloNIDine HCL 0.1 MG TABLET PO PRN (15:30)
[2023-05-20] MEDS ORDERED: ACETAMINOPHEN 325 MG TABLET PO PRN (15:30)
[2023-05-20] MEDS ORDERED: ALBUTEROL SULFATE HFA 90 MCG/PUFF 8 GM INHALER IH PRN (15:30)
[2023-05-20] MEDS ORDERED: DOCUSATE SODIUM 100 MG CAPSULE PO PRN (15:30)
[2023-05-20] MEDS ORDERED: ONDANSETRON HCL 4 MG TABLET PO PRN (15:30)
[2023-05-20] MEDS ORDERED: GuaiFENesin/D-METHORPHAN [SUGAR-FREE] 200-20MG/10 ML SYRUP UDCUP PO PRN (15:30)
[2023-05-20] MEDS ORDERED: NICOTINE 14 MG/24 HOUR PATCH TD PRN (15:30)
[2023-05-20] MEDS ORDERED: LOPERAMIDE HCL 2 MG CAPSULE PO PRN (15:30)
[2023-05-20] MEDS ORDERED: IBUPROFEN 400 MG TABLET PO PRN (15:30)
[2023-05-20] MEDS ORDERED: PETROLATUM,WHITE 28 GM JELLY TP PRN (15:30)
[2023-05-20] MEDS ORDERED: MAGNESIUM HYDROXIDE SUSPENSION 30 ML UDCUP PO PRN (15:30)
[2023-05-20 20:21] VITALS: BP 110/64; PULSE 98; RESP 18; TEMP 97.8; O2SAT 99
[2023-05-20] MEDS: OLANZapine 10 MG TABLET PO SCH (20:27)
[2023-05-20] MEDS: DIVALPROEX SODIUM 500 MG DR TABLET PO SCH (20:27)
[2023-05-20] MEDS: MELATONIN 5 MG TABLET PO SCH (20:38)
[2023-05-21] MEDS: OMEGA-3/DHA/EPA/FISH OIL 1,000 MG CAPSULE PO SCH (08:07)
[2023-05-21] MEDS: OLANZapine 5 MG TABLET PO SCH (08:08)
[2023-05-21 08:38] LABS: HEMOGLOBIN A1C 5.7 % (3.8-5.6)
[2023-05-21 09:05] LABS: THYROID STIMULATING HORMONE 0.66 uIU/mL (0.36-3.74)
[2023-05-21 13:09] VITALS: RESP 18
[2023-05-21] MEDS: DIVALPROEX SODIUM 500 MG DR TABLET PO SCH (20:31)
[2023-05-21] MEDS: OLANZapine 10 MG TABLET PO SCH (20:31)
[2023-05-21] MEDS: MELATONIN 5 MG TABLET PO SCH (20:31)
[2023-05-21 21:02] VITALS: BP 100/67; PULSE 88; RESP 16; TEMP 97.8; O2SAT 99
[2023-05-22 08:43] VITALS: BP 100/67; PULSE 75; RESP 17; TEMP 97.6; O2SAT 96
[2023-05-22] MEDS: OMEGA-3/DHA/EPA/FISH OIL 1,000 MG CAPSULE PO SCH (08:54)
[2023-05-22] MEDS: OLANZapine 5 MG TABLET PO SCH (08:54)
[2023-05-22] MEDS: MELATONIN 5 MG TABLET PO SCH (20:11)
[2023-05-22] MEDS: DIVALPROEX SODIUM 500 MG DR TABLET PO SCH (20:12)
[2023-05-22] MEDS: OLANZapine 10 MG TABLET PO SCH (20:12)
[2023-05-22 21:38] VITALS: BP 110/68; PULSE 81; RESP 18; TEMP 97.5; O2SAT 94
[2023-05-23 08:15] VITALS: BP 106/59; PULSE 87; RESP 17; TEMP 98; O2SAT 98
[2023-05-23 08:21] LABS: BASOPHILS % (AUTO) 0.5 % (0.0-2.0); EOSINOPHILS % (AUTO) 5.4 % (1.0-6.0); HEMATOCRIT 48.5 % (41-53); HEMOGLOBIN 16.2 g/dL (13.5-17.5); LYMPHOCYTES # (AUTO) 2.9 K/uL (1.0-4.8); LYMPHOCYTES % (AUTO) 30.9 % (22.0-44.0); MEAN CORPUSCULAR HEMOGLOBIN 30.1 pg (26.0-34.0); MEAN CORPUSCULAR HGB CONC 33.4 G/dL (31.0-37.0); MEAN CORPUSCULAR VOLUME 90 fL (80-100); MONOCYTES # (AUTO) 0.7 K/uL (0.1-1.0); MONOCYTES % (AUTO) 7.5 % (2.0-9.0); NEUTROPHILS # (AUTO) 5.2 K/uL (1.8-7.7); NEUTROPHILS % (AUTO) 55.7 % (40.0-70.0); PLATELET COUNT (AUTO) 254 K/uL (150-450); RED BLOOD CELL COUNT(AUTO) 5.39 MIL/uL (4.50-5.90); RED CELL DISTRIBUTION WIDTH 13.6 % (11.5-14.5); WHITE BLOOD COUNT (AUTO) 9.4 K/uL (4.5-11.0)
[2023-05-23 08:39] LABS: ANION GAP 10 mmol/L (8-16); CALCIUM, TOTAL 8.8 mg/dL (8.8-10.5); CARBON DIOXIDE 27 mmol/L (22-29); CHLORIDE 104 mmol/L (98-107); CREATININE 0.86 mg/dL (0.60-1.30); GLOMERULAR FILTR. RATE CALC > 60 mL/min (>60); GLUCOSE,RANDOM 96 mg/dL (70-110); SODIUM SERUM 141 mmol/L (136-145); UREA NITROGEN, BLOOD 11 mg/dL (7-18); VALPROIC ACID 59 mcg/mL (50-100)
[2023-05-23] MEDS: OLANZapine 5 MG TABLET PO SCH (08:52)
[2023-05-23] MEDS: OMEGA-3/DHA/EPA/FISH OIL 1,000 MG CAPSULE PO SCH (08:53)
[2023-05-23] MEDS: MELATONIN 5 MG TABLET PO SCH (20:26)
[2023-05-23] MEDS: DIVALPROEX SODIUM 500 MG DR TABLET PO SCH (20:26)
[2023-05-23] MEDS: OLANZapine 10 MG TABLET PO SCH (20:26)
[2023-05-23 20:38] VITALS: BP 106/81; PULSE 100; RESP 17; TEMP 97.7; O2SAT 97
[2023-05-24] MEDS: OMEGA-3/DHA/EPA/FISH OIL 1,000 MG CAPSULE PO SCH (08:29)
[2023-05-24] MEDS: OLANZapine 5 MG TABLET PO SCH (08:29)
[2023-05-24 09:17] VITALS: BP 96/60; PULSE 83; RESP 18; TEMP 97.1; O2SAT 96
[2023-05-24 20:11] VITALS: BP 107/69; PULSE 82; RESP 18; TEMP 98.2; O2SAT 96
[2023-05-24] MEDS: MELATONIN 5 MG TABLET PO SCH (20:31)
[2023-05-24] MEDS: OLANZapine 10 MG TABLET PO SCH (20:32)
[2023-05-24] MEDS: DIVALPROEX SODIUM 500 MG DR TABLET PO SCH (20:32)
[2023-05-25 08:32] VITALS: BP 109/73; PULSE 100; RESP 17; TEMP 97.8; O2SAT 96
[2023-05-25] MEDS: OLANZapine 5 MG TABLET PO SCH (08:49)
[2023-05-25] MEDS: OMEGA-3/DHA/EPA/FISH OIL 1,000 MG CAPSULE PO SCH (08:49)
== END 2023-05-25 13:34 | disposition home or self-care (01) | DRG 750 ==
LOC: EMS 02:18 → B3A 05-19 09:21 → B2S 05-21 16:05
PROVIDERS: ADMIT Psychiatry & Neurology Child & Adolescent Psychiatry; ATTEND Psychiatry & Neurology Child & Adolescent Psychiatry
PROC: GZHZZZZ Group Psychotherapy (ICD-10-PCS; principal; 2023-05-22)
DX: F20.0 Paranoid schizophrenia (principal); N17.9 Acute kidney failure, unspecified; E66.01 Morbid (severe) obesity due to excess calories; R79.89 Other specified abnormal findings of blood chemistry; B19.20 Unspecified viral hepatitis C without hepatic coma; Z20.822 Contact with and (suspected) exposure to COVID-19; F15.10 Other stimulant abuse, uncomplicated; R73.03 Prediabetes; D72.829 Elevated white blood cell count, unspecified; F41.9 Anxiety disorder, unspecified; Z86.16 Personal history of COVID-19; Z79.899 Other long term (current) drug therapy; Z59.00 Homelessness unspecified
CPT/HCPCS: 80048; 80053; 80164; 80307; 81003; 83036; 84443; 85025; 90686; 99291; G0480; J2060; J3486; Q9967

== ENCOUNTER 2023-05-27 23:01 | Emergency (ER) | payer MEDICAID ==
[~2023-05-27] VITALS: Ht 167.6 cm; Wt 106.0 kg
[~2023-05-27 23:01] MED LIST changes: -FLUO20CA36 PO
[2023-05-27 23:05] VITALS: TEMP 98.5
[2023-05-27 23:42] VITALS: BP 150/99; PULSE 131; RESP 18
[2023-05-28 00:32] LABS: ANION GAP 14 mmol/L (8-16); CALCIUM, TOTAL 9.9 mg/dL (8.8-10.5); CARBON DIOXIDE 25 mmol/L (22-29); CHLORIDE 100 mmol/L (98-107); CREATININE 1.13 mg/dL (0.60-1.30); GLOMERULAR FILTR. RATE CALC > 60 mL/min (>60); GLUCOSE,RANDOM 126 mg/dL (70-110); POTASSIUM 4.2 mmol/L (3.5-5.1); SODIUM SERUM 139 mmol/L (136-145); UREA NITROGEN, BLOOD 13 mg/dL (7-18)
[2023-05-28 00:35] LABS: BASOPHILS % (AUTO) 0.5 % (0.0-2.0); EOSINOPHILS % (AUTO) 0.7 % (1.0-6.0); HEMATOCRIT 48.8 % (41-53); HEMOGLOBIN 16.4 g/dL (13.5-17.5); LYMPHOCYTES % (AUTO) 23.1 % (22.0-44.0); MEAN CORPUSCULAR HEMOGLOBIN 29.8 pg (26.0-34.0); MEAN CORPUSCULAR HGB CONC 33.5 G/dL (31.0-37.0); MEAN CORPUSCULAR VOLUME 89 fL (80-100); MONOCYTES # (AUTO) 1.4 K/uL (0.1-1.0); MONOCYTES % (AUTO) 10.5 % (2.0-9.0); NEUTROPHILS # (AUTO) 8.4 K/uL (1.8-7.7); NEUTROPHILS % (AUTO) 65.2 % (40.0-70.0); PLATELET COUNT (AUTO) 352 K/uL (150-450); RED CELL DISTRIBUTION WIDTH 13.7 % (11.5-14.5); WHITE BLOOD COUNT (AUTO) 12.9 K/uL (4.5-11.0)
[2023-05-28 00:38] LABS: ALANINE AMINOTRANSFERASE 105 U/L (12-78); ALBUMIN 4.9 g/dL (3.4-5.0); ALKALINE PHOSPHATASE 89 U/L (46-116); ASPARTATE AMINOTRANSFERASE 68 U/L (15-37); BILIRUBIN,TOTAL 0.7 mg/dL (0.1-1.0); TOTAL PROTEIN, SERUM 8.6 g/dL (6.4-8.2)
[2023-05-28 00:41] LABS: ALCOHOL, BLOOD (SERUM) < 3 mg/dL (0-10)
[2023-05-28] MEDS: OLANZapine 5 MG TABLET PO ONE (02:43)
[2023-05-28] MEDS ORDERED: OLAN10TA74 PO (03:50)
== END 2023-05-28 04:12 | disposition short-term general hospital (02) ==
LOC: EMS 23:04
DX: F25.9 Schizoaffective disorder, unspecified (principal); F41.9 Anxiety disorder, unspecified; F15.90 Other stimulant use, unspecified, uncomplicated
CPT/HCPCS: 99285; 80053; 85025; 36415; G0480

== ENCOUNTER 2023-06-20 22:26 | Inpatient (IN) | payer MEDICAID ==
[~2023-06-20] VITALS: Ht 167.6 cm; Wt 99.8 kg
[~2023-06-20 22:26] MED LIST changes: +OLAN10TA74 PO
[2023-06-20] MEDS: LORazepam 2 MG TABLET PO ONE (23:11)
[2023-06-20] MEDS: DiphenhydrAMINE HCL 25 MG CAPSULE PO ONE (23:11)
[2023-06-20] MEDS: OLANZapine 10 MG TABLET PO ONE (23:11)
[2023-06-20 23:40] LABS: BASOPHILS % (AUTO) 0.3 % (0.0-2.0); EOSINOPHILS % (AUTO) 0.3 % (1.0-6.0); HEMATOCRIT 40.8 % (41-53); HEMOGLOBIN 13.8 g/dL (13.5-17.5); LYMPHOCYTES # (AUTO) 1.8 K/uL (1.0-4.8); LYMPHOCYTES % (AUTO) 12.6 % (22.0-44.0); MEAN CORPUSCULAR HGB CONC 33.7 G/dL (31.0-37.0); MEAN CORPUSCULAR VOLUME 89 fL (80-100); MONOCYTES # (AUTO) 1.3 K/uL (0.1-1.0); MONOCYTES % (AUTO) 8.9 % (2.0-9.0); NEUTROPHILS # (AUTO) 11.2 K/uL (1.8-7.7); NEUTROPHILS % (AUTO) 77.9 % (40.0-70.0); PLATELET COUNT (AUTO) 245 K/uL (150-450); RED BLOOD CELL COUNT(AUTO) 4.59 MIL/uL (4.50-5.90); RED CELL DISTRIBUTION WIDTH 13.9 % (11.5-14.5); WHITE BLOOD COUNT (AUTO) 14.4 K/uL (4.5-11.0)
[2023-06-20 23:41] LABS: COVID AG,FIA SOURCE NASAL SWAB
[2023-06-20 23:49] LABS: ANION GAP 13 mmol/L (8-16); CALCIUM, TOTAL 9.3 mg/dL (8.8-10.5); CARBON DIOXIDE 23 mmol/L (22-29); CHLORIDE 96 mmol/L (98-107); CREATININE 1.15 mg/dL (0.60-1.30); GLOMERULAR FILTR. RATE CALC > 60 mL/min (>60); GLUCOSE,RANDOM 137 mg/dL (70-110); POTASSIUM 3.9 mmol/L (3.5-5.1); SODIUM SERUM 132 mmol/L (136-145); UREA NITROGEN, BLOOD 20 mg/dL (7-18)
[2023-06-20 23:52] LABS: SARS-COV2 (COVID) ANTIGEN,FIA Negative (Negative)
[2023-06-20 23:54] LABS: ALANINE AMINOTRANSFERASE 73 U/L (12-78); ALBUMIN 4.3 g/dL (3.4-5.0); ALKALINE PHOSPHATASE 76 U/L (46-116); ASPARTATE AMINOTRANSFERASE 84 U/L (15-37); BILIRUBIN,TOTAL 2.4 mg/dL (0.1-1.0); TOTAL PROTEIN, SERUM 7.8 g/dL (6.4-8.2)
[2023-06-21] MEDS ORDERED: LORazepam 2 MG TABLET PO PRN
[2023-06-21] MEDS ORDERED: HALOPERIDOL 5 MG TABLET PO PRN
[2023-06-21 00:04] LABS: ALCOHOL, BLOOD (SERUM) < 3 mg/dL (0-10)
[2023-06-21] MEDS: DiphenhydrAMINE HCL 50 MG/ML VIAL IM ONE (01:00)
[2023-06-21] MEDS: HALOPERIDOL LACTATE 5 MG/ML VIAL IM ONE (01:00)
[2023-06-21] MEDS: LORazepam 2 MG/ML VIAL IM ONE (01:00)
[2023-06-21 21:21] VITALS: BP 149/93; PULSE 100; RESP 18; TEMP 98.4; O2SAT 99
[2023-06-22 08:04] VITALS: BP 114/76; PULSE 101; RESP 18; TEMP 98.1; O2SAT 99
[2023-06-22] MEDS: NYSTATIN 30 GM CREAM TP SCH (09:00)
[2023-06-22] MEDS: BACITRACIN 28 GM OINTMENT TP SCH (09:58)
[2023-06-22] MEDS ORDERED: ONDANSETRON HCL 4 MG TABLET PO PRN (17:30)
[2023-06-22] MEDS ORDERED: GuaiFENesin/D-METHORPHAN [SUGAR-FREE] 200-20MG/10 ML SYRUP UDCUP PO PRN (17:30)
[2023-06-22] MEDS ORDERED: NICOTINE 14 MG/24 HOUR PATCH TD PRN (17:30)
[2023-06-22] MEDS ORDERED: IBUPROFEN 400 MG TABLET PO PRN (17:30)
[2023-06-22] MEDS ORDERED: DOCUSATE SODIUM 100 MG CAPSULE PO PRN (17:30)
[2023-06-22] MEDS ORDERED: MAG HYDROX/ALUMINUM HYD/SIMETH ES 30 ML SUSPENSION UDCUP PO PRN (17:30)
[2023-06-22] MEDS ORDERED: ACETAMINOPHEN 325 MG TABLET PO PRN (17:30)
[2023-06-22] MEDS ORDERED: LOPERAMIDE HCL 2 MG CAPSULE PO PRN (17:30)
[2023-06-22] MEDS ORDERED: PETROLATUM,WHITE 28 GM JELLY TP PRN (17:30)
[2023-06-22] MEDS ORDERED: CloNIDine HCL 0.1 MG TABLET PO PRN (17:30)
[2023-06-22] MEDS ORDERED: MAGNESIUM HYDROXIDE SUSPENSION 30 ML UDCUP PO PRN (17:30)
[2023-06-22] MEDS ORDERED: ALBUTEROL SULFATE HFA 90 MCG/PUFF 8 GM INHALER IH PRN (17:30)
[2023-06-22 20:26] VITALS: BP 115/57; PULSE 94; RESP 18; TEMP 97.8; O2SAT 99
[2023-06-22] MEDS: DIVALPROEX SODIUM 500 MG ER TABLET PO SCH (20:56)
[2023-06-22] MEDS: OLANZapine 10 MG TABLET PO SCH (20:56)
[2023-06-22] MEDS: MELATONIN 5 MG TABLET PO SCH (21:01)
[2023-06-23 08:00] VITALS: BP 100/69; PULSE 74; RESP 18; TEMP 98.2; O2SAT 99
[2023-06-23] MEDS: OMEGA-3/DHA/EPA/FISH OIL 1,000 MG CAPSULE PO SCH (08:04)
[2023-06-23 08:35] LABS: HEMOGLOBIN A1C 5.7 % (3.8-5.6)
[2023-06-23 08:51] LABS: CHOL/HDL RATIO 4.3 (4.2-7.3); THYROID STIMULATING HORMONE 1.01 uIU/mL (0.36-3.74)
[2023-06-23 20:32] VITALS: BP 107/61; PULSE 83; RESP 18; TEMP 98.2; O2SAT 96
[2023-06-24 08:05] VITALS: BP 106/67; PULSE 78; RESP 17; TEMP 97.5; O2SAT 99
[2023-06-24 20:25] VITALS: BP 136/76; PULSE 82; RESP 18
[2023-06-25 08:53] VITALS: BP 101/63; PULSE 72; RESP 18; TEMP 97.7; O2SAT 100
[2023-06-25 20:12] VITALS: BP 136/75; PULSE 99; RESP 17; TEMP 98.3; O2SAT 97
[2023-06-26 08:30] LABS: BASOPHILS % (AUTO) 0.2 % (0.0-2.0); EOSINOPHILS % (AUTO) 3.7 % (1.0-6.0); HEMATOCRIT 42.5 % (41-53); HEMOGLOBIN 14.5 g/dL (13.5-17.5); LYMPHOCYTES # (AUTO) 2.7 K/uL (1.0-4.8); LYMPHOCYTES % (AUTO) 37.9 % (22.0-44.0); MEAN CORPUSCULAR HEMOGLOBIN 30.7 pg (26.0-34.0); MEAN CORPUSCULAR HGB CONC 34.1 G/dL (31.0-37.0); MEAN CORPUSCULAR VOLUME 90 fL (80-100); MONOCYTES # (AUTO) 0.4 K/uL (0.1-1.0); MONOCYTES % (AUTO) 6.1 % (2.0-9.0); NEUTROPHILS # (AUTO) 3.7 K/uL (1.8-7.7); NEUTROPHILS % (AUTO) 52.1 % (40.0-70.0); PLATELET COUNT (AUTO) 252 K/uL (150-450); RED BLOOD CELL COUNT(AUTO) 4.73 MIL/uL (4.50-5.90); RED CELL DISTRIBUTION WIDTH 14.4 % (11.5-14.5); WHITE BLOOD COUNT (AUTO) 7.2 K/uL (4.5-11.0)
[2023-06-26 08:46] VITALS: BP 107/69; PULSE 93; RESP 17; TEMP 98.3; O2SAT 98
[2023-06-26 20:40] VITALS: BP 118/83; PULSE 90; RESP 17; TEMP 97.3; O2SAT 98
[2023-06-27 08:08] VITALS: BP 121/62; PULSE 76; RESP 18; TEMP 98.1; O2SAT 97
[2023-06-27 20:01] VITALS: BP 118/69; PULSE 99; RESP 18; TEMP 97.5; O2SAT 98
[2023-06-28 14:10] VITALS: BP 126/72; PULSE 86; RESP 19; TEMP 97.6; O2SAT 99
[2023-06-28 20:12] VITALS: BP 136/83; PULSE 84; RESP 17; TEMP 97.7; O2SAT 97
[2023-06-29 08:23] VITALS: BP 103/60; PULSE 71; RESP 17; TEMP 97.7; O2SAT 96
[2023-06-29 09:20] LABS: APPEARANCE,URINE CLEAR (CLEAR); BILIRUBIN,URINE NEGATIVE (NEGATIVE); COLOR,URINE COLORLESS (YELLOW); GLUCOSE, URINE (UA) NEGATIVE (NEGATIVE); KETONES,URINE NEGATIVE (NEGATIVE); LEUKOCYTE ESTERASE ,URINE NEGATIVE (NEGATIVE); NITRATE,URINE NEGATIVE (NEGATIVE); OCCULT BLOOD,URINE NEGATIVE (NEGATIVE); PH,URINE 5.5 (5.0-8.0); PH,URINE DRUG SCREEN 5.5 (5.0-8.0); PROTEIN,URINE NEGATIVE (NEGATIVE); SPECIFIC GRAVITIY, URINE 1.005 (1.003-1.030); UROBILINOGEN,URINE <=1.0 mg/dL (<=1.0)
[2023-06-29 09:27] LABS: ALCOHOL, URINE DRUG SCREEN NEGATIVE (NEGATIVE); AMPHET/METH SCREEN,URINE NEGATIVE (NEGATIVE); BARBITURATE SCREEN, URINE NEGATIVE (NEGATIVE); BENZODIAZEPINES SCREEN,URINE NEGATIVE (NEGATIVE); CANNABINOID SCREEN,URINE NEGATIVE (NEGATIVE); COCAINE SCREEN,URINE NEGATIVE (NEGATIVE); METHADONE SCREEN, URINE NEGATIVE (NEGATIVE); OPIATE SCREEN,URINE NEGATIVE (NEGATIVE); PHENCYCLIDINE SCREEN,URINE NEGATIVE (NEGATIVE)
[2023-06-29] MEDS: ZOLPIDEM TARTRATE 10 MG TABLET PO PRN (21:10)
[2023-06-29 22:11] VITALS: BP 118/82; PULSE 81; RESP 18; TEMP 97.5
[2023-06-30 08:00] VITALS: BP 75/64; PULSE 96; RESP 16; TEMP 97.8
[2023-06-30 20:40] VITALS: BP 136/79; PULSE 92; RESP 18; TEMP 98.1
[2023-07-01 08:20] VITALS: BP 125/76; PULSE 97; RESP 18; TEMP 97.7; O2SAT 96
[2023-07-01 21:18] VITALS: BP 109/81; PULSE 99; RESP 16; TEMP 98; O2SAT 98
[2023-07-02 08:19] VITALS: BP 134/79; PULSE 89; RESP 18; TEMP 98; O2SAT 96
[2023-07-02 08:38] LABS: CALCIUM, TOTAL 8.5 mg/dL (8.8-10.5); CHLORIDE 103 mmol/L (98-107); CREATININE 0.81 mg/dL (0.60-1.30); GLOMERULAR FILTR. RATE CALC > 60 mL/min (>60); GLUCOSE,RANDOM 139 mg/dL (70-110); POTASSIUM 3.7 mmol/L (3.5-5.1); SODIUM SERUM 136 mmol/L (136-145); UREA NITROGEN, BLOOD 10 mg/dL (7-18)
[2023-07-02 08:47] LABS: ANION GAP 7 mmol/L (8-16); CARBON DIOXIDE 26 mmol/L (22-29)
[2023-07-02] MEDS ORDERED: OLAN10TA74 PO (15:54)
[2023-07-02] MEDS ORDERED: DIVA500T69 PO (15:54)
== END 2023-07-02 08:20 | disposition home or self-care (01) | DRG 750 ==
LOC: EMS 22:28 → B3A 06-21 17:42
PROVIDERS: ADMIT Psychiatry & Neurology Psychiatry; ATTEND Psychiatry & Neurology Child & Adolescent Psychiatry
PROC: GZHZZZZ Group Psychotherapy (ICD-10-PCS; principal; 2023-06-22)
PROC: GZ51ZZZ Individual Psychotherapy, Behavioral (ICD-10-PCS; 2023-06-22)
DX: F25.1 Schizoaffective disorder, depressive type (principal); R45.851 Suicidal ideations; F41.9 Anxiety disorder, unspecified; F15.10 Other stimulant abuse, uncomplicated; Z20.822 Contact with and (suspected) exposure to COVID-19; D72.829 Elevated white blood cell count, unspecified; B18.2 Chronic viral hepatitis C; Z79.899 Other long term (current) drug therapy
CPT/HCPCS: 80048; 80053; 80061; 80164; 80307; 81003; 83036; 84443; 84460; 85025; 86707; 86709; 87081; 87350; 87517; 99285; G0480; J1200; J1630; J2060; Q9967

== ENCOUNTER 2023-07-15 22:26 | Inpatient (IN) | payer MEDICAID ==
[~2023-07-15] VITALS: Ht 167.6 cm; Wt 94.4 kg
[~2023-07-15 22:26] MED LIST changes: +DIVA500T69 PO
[2023-07-15] MEDS ORDERED: DIVA500T53 PO (22:52)
[2023-07-15] MEDS ORDERED: ESCI-8 PO (22:52)
[2023-07-15 23:08] LABS: BASOPHILS % (AUTO) 0.6 % (0.0-2.0); EOSINOPHILS % (AUTO) 1.9 % (1.0-6.0); HEMATOCRIT 48.3 % (41-53); HEMOGLOBIN 16.4 g/dL (13.5-17.5); LYMPHOCYTES # (AUTO) 2.6 K/uL (1.0-4.8); LYMPHOCYTES % (AUTO) 28.6 % (22.0-44.0); MEAN CORPUSCULAR HEMOGLOBIN 30.4 pg (26.0-34.0); MEAN CORPUSCULAR HGB CONC 33.9 G/dL (31.0-37.0); MEAN CORPUSCULAR VOLUME 90 fL (80-100); MONOCYTES # (AUTO) 0.8 K/uL (0.1-1.0); NEUTROPHILS # (AUTO) 5.4 K/uL (1.8-7.7); NEUTROPHILS % (AUTO) 59.9 % (40.0-70.0); PLATELET COUNT (AUTO) 280 K/uL (150-450); RED BLOOD CELL COUNT(AUTO) 5.37 MIL/uL (4.50-5.90); RED CELL DISTRIBUTION WIDTH 14.7 % (11.5-14.5)
[2023-07-15 23:15] LABS: ANION GAP 14 mmol/L (8-16); CALCIUM, TOTAL 9.2 mg/dL (8.8-10.5); CARBON DIOXIDE 26 mmol/L (22-29); CHLORIDE 97 mmol/L (98-107); CREATININE 1.09 mg/dL (0.60-1.30); GLOMERULAR FILTR. RATE CALC > 60 mL/min (>60); GLUCOSE,RANDOM 97 mg/dL (70-110); POTASSIUM 3.6 mmol/L (3.5-5.1); SODIUM SERUM 137 mmol/L (136-145); UREA NITROGEN, BLOOD 14 mg/dL (7-18)
[2023-07-15 23:20] LABS: ALANINE AMINOTRANSFERASE 64 U/L (12-78); ALBUMIN 4.5 g/dL (3.4-5.0); ALKALINE PHOSPHATASE 81 U/L (46-116); ASPARTATE AMINOTRANSFERASE 46 U/L (15-37); BILIRUBIN,TOTAL 0.7 mg/dL (0.1-1.0)
[2023-07-15 23:21] LABS: ALCOHOL, BLOOD (SERUM) < 3 mg/dL (0-10)
[2023-07-16] MEDS: LORazepam 2 MG TABLET PO ONE (00:36)
[2023-07-16] MEDS: OLANZapine 10 MG TABLET PO ONE (00:36)
[2023-07-16 00:52] LABS: VALPROIC ACID 11 mcg/mL (50-100)
[2023-07-16] MEDS: DIVALPROEX SODIUM 250 MG DR TABLET PO ONE (02:28)
[2023-07-16 02:54] LABS: COVID AG,FIA SOURCE NASAL SWAB
[2023-07-16 03:19] LABS: SARS-COV2 (COVID) ANTIGEN,FIA Negative (Negative)
[2023-07-16 05:05] VITALS: BP 140/103; PULSE 122; RESP 18; TEMP 97; O2SAT 98
[2023-07-16] MEDS: HALOPERIDOL 5 MG TABLET PO PRN (08:24)
[2023-07-16] MEDS: LORazepam 2 MG TABLET PO PRN (08:24)
[2023-07-16 08:37] VITALS: BP 141/100; PULSE 118; RESP 18; TEMP 96.9; O2SAT 95
[2023-07-16 09:00] VITALS: BP 141/100; PULSE 118; RESP 18; TEMP 96.9; O2SAT 96
[2023-07-16] MEDS: ESCITALOPRAM OXALATE 10 MG TABLET PO SCH (09:54)
[2023-07-16] MEDS: DIVALPROEX SODIUM 500 MG ER TABLET PO SCH (09:54)
[2023-07-16] MEDS ORDERED: ALBUTEROL SULFATE HFA 90 MCG/PUFF 8 GM INHALER IH PRN (15:30)
[2023-07-16] MEDS ORDERED: ACETAMINOPHEN 325 MG TABLET PO PRN (15:30)
[2023-07-16] MEDS ORDERED: ONDANSETRON HCL 4 MG TABLET PO PRN (15:30)
[2023-07-16] MEDS ORDERED: IBUPROFEN 400 MG TABLET PO PRN (15:30)
[2023-07-16] MEDS ORDERED: DOCUSATE SODIUM 100 MG CAPSULE PO PRN (15:30)
[2023-07-16] MEDS ORDERED: CloNIDine HCL 0.1 MG TABLET PO PRN (15:30)
[2023-07-16] MEDS ORDERED: LOPERAMIDE HCL 2 MG CAPSULE PO PRN (15:30)
[2023-07-16] MEDS ORDERED: GuaiFENesin/D-METHORPHAN [SUGAR-FREE] 200-20MG/10 ML SYRUP UDCUP PO PRN (15:30)
[2023-07-16] MEDS ORDERED: MAGNESIUM HYDROXIDE SUSPENSION 30 ML UDCUP PO PRN (15:30)
[2023-07-16] MEDS ORDERED: NICOTINE 14 MG/24 HOUR PATCH TD PRN (15:30)
[2023-07-16] MEDS ORDERED: MAG HYDROX/ALUMINUM HYD/SIMETH ES 30 ML SUSPENSION UDCUP PO PRN (15:30)
[2023-07-16] MEDS ORDERED: PETROLATUM,WHITE 28 GM JELLY TP PRN (15:30)
[2023-07-16 20:40] VITALS: BP 146/97; PULSE 105; RESP 18; TEMP 97.5; O2SAT 96
[2023-07-16] MEDS: OLANZapine 10 MG TABLET PO SCH (21:01)
[2023-07-16] MEDS: MELATONIN 5 MG TABLET PO SCH (21:01)
[2023-07-16] MEDS: ZOLPIDEM TARTRATE 10 MG TABLET PO PRN (21:04)
[2023-07-17] MEDS: OMEGA-3/DHA/EPA/FISH OIL 1,000 MG CAPSULE PO SCH (08:43)
[2023-07-17 09:07] LABS: HEMOGLOBIN A1C 5.7 % (3.8-5.6)
[2023-07-17 09:20] LABS: THYROID STIMULATING HORMONE 1.01 uIU/mL (0.36-3.74)
[2023-07-17 09:53] LABS: CHOL/HDL RATIO 3.8 (4.2-7.3)
[2023-07-17 20:50] VITALS: BP 139/99; PULSE 101; RESP 18; TEMP 97.7; O2SAT 96
[2023-07-18 09:32] VITALS: BP 139/97; PULSE 98; RESP 18; TEMP 97.5; O2SAT 96
[2023-07-18 22:18] VITALS: BP 96/63; PULSE 74; RESP 18; TEMP 97; O2SAT 97
[2023-07-19 10:56] VITALS: BP 86/48; PULSE 70; RESP 18; TEMP 97; O2SAT 99
[2023-07-20 09:12] VITALS: BP 115/68; PULSE 60; RESP 16; TEMP 97.5; O2SAT 96
[2023-07-20 21:21] VITALS: BP 110/72; PULSE 72; RESP 19; TEMP 97.9; O2SAT 98
[2023-07-21 08:25] VITALS: BP 111/84; PULSE 100; RESP 17; TEMP 97.6; O2SAT 99
[2023-07-21 21:25] VITALS: RESP 18
[2023-07-22 10:47] VITALS: BP 147/83; PULSE 77; RESP 17; TEMP 99.6; O2SAT 99
[2023-07-22 21:28] VITALS: BP 125/86; PULSE 97; RESP 18; TEMP 97.5; O2SAT 99
[2023-07-23 09:00] VITALS: BP 104/67; PULSE 71; RESP 18; TEMP 96.9; O2SAT 97
== END 2023-07-23 13:20 | disposition home or self-care (01) | DRG 750 ==
LOC: EMS 22:27 → 3EC 07-16 03:34
PROVIDERS: ADMIT Psychiatry & Neurology Psychiatry; ATTEND Psychiatry & Neurology Psychiatry
DX: F25.1 Schizoaffective disorder, depressive type (principal); B18.2 Chronic viral hepatitis C; F15.10 Other stimulant abuse, uncomplicated; R73.03 Prediabetes; Z20.822 Contact with and (suspected) exposure to COVID-19; F32.A Depression, unspecified; F41.9 Anxiety disorder, unspecified; G47.00 Insomnia, unspecified; Z86.16 Personal history of COVID-19; Z87.891 Personal history of nicotine dependence; Z79.899 Other long term (current) drug therapy
CPT/HCPCS: 80053; 80061; 80164; 83036; 84443; 85025; 87081; 93005; 99285; G0480; Q9967

== ENCOUNTER 2024-07-09 04:06 | Emergency (ER) | payer MEDICAID, OTHER ==
[~2024-07-09] VITALS: Ht 170.2 cm; Wt 104.5 kg
[~2024-07-09 04:06] MED LIST changes: +DIVA-153 PO; -DIVA500T53 PO; -DIVA500T69 PO; +ESCI-8 PO; -MELA5TAB40 PO; -OLAN10 PO; -OMEG-135 PO
[2024-07-09 04:27] VITALS: TEMP 98.9
[2024-07-09] MEDS: LORazepam 1 MG TABLET PO ONE (05:26)
[2024-07-09 05:30] VITALS: BP 149/100; PULSE 105; RESP 18; O2SAT 97
== END 2024-07-09 05:50 | disposition home or self-care (01) ==
LOC: EMS 04:07
DX: F41.9 Anxiety disorder, unspecified (principal); F15.10 Other stimulant abuse, uncomplicated; F25.9 Schizoaffective disorder, unspecified; Z79.899 Other long term (current) drug therapy; Z86.19 Personal history of other infectious and parasitic diseases; Z20.822 Contact with and (suspected) exposure to COVID-19
CPT/HCPCS: 99283

== ENCOUNTER 2024-10-05 02:52 | Emergency (ER) | payer MEDICAID ==
[~2024-10-05] VITALS: Ht 167.6 cm; Wt 81.8 kg
[2024-10-05 03:07] VITALS: BP 134/86; PULSE 117; RESP 19; TEMP 99.5; O2SAT 97
[2024-10-05 03:32] LABS: BASOPHILS % (AUTO) 0.7 % (0.0-2.0); EOSINOPHILS % (AUTO) 0.4 % (1.0-6.0); HEMATOCRIT 40.9 % (41-53); HEMOGLOBIN 14.2 g/dL (13.5-17.5); LYMPHOCYTES # (AUTO) 1.6 K/uL (1.0-4.8); LYMPHOCYTES % (AUTO) 16.4 % (22.0-44.0); MEAN CORPUSCULAR HEMOGLOBIN 30.7 pg (26.0-34.0); MEAN CORPUSCULAR HGB CONC 34.9 G/dL (31.0-37.0); MEAN CORPUSCULAR VOLUME 88 fL (80-100); MONOCYTES % (AUTO) 10.5 % (2.0-9.0); PLATELET COUNT (AUTO) 226 K/uL (150-450); RED BLOOD CELL COUNT(AUTO) 4.64 MIL/uL (4.50-5.90); RED CELL DISTRIBUTION WIDTH 14.1 % (11.5-14.5); WHITE BLOOD COUNT (AUTO) 9.7 K/uL (4.5-11.0)
[2024-10-05 03:36] LABS: ANION GAP 10 mmol/L (8-16); CALCIUM, TOTAL 8.7 mg/dL (8.8-10.5); CARBON DIOXIDE 24 mmol/L (22-29); CHLORIDE 103 mmol/L (98-107); CREATININE 1.11 mg/dL (0.60-1.30); GLOMERULAR FILTR. RATE CALC > 60 mL/min (>60); GLUCOSE,RANDOM 106 mg/dL (70-110); POTASSIUM 3.8 mmol/L (3.5-5.1); SODIUM SERUM 137 mmol/L (136-145); UREA NITROGEN, BLOOD 19 mg/dL (7-18)
[2024-10-05] MEDS ORDERED: LORazepam 1 MG TABLET PO ONE (04:00)
[2024-10-05] MEDS: LORazepam 2 MG/ML VIAL IM ONE (04:05)
[2024-10-05] MEDS: OLANZapine 10 MG TABLET PO ONE (04:38)
== END 2024-10-05 04:55 | disposition home or self-care (01) ==
LOC: EMS 02:53
DX: F41.9 Anxiety disorder, unspecified (principal); F15.90 Other stimulant use, unspecified, uncomplicated; Z86.16 Personal history of COVID-19; Z86.19 Personal history of other infectious and parasitic diseases; Z79.899 Other long term (current) drug therapy
CPT/HCPCS: 99283; 80048; 85025; 36415; G0480; J2060

== ENCOUNTER 2024-12-11 20:17 | Inpatient (IN) | payer MEDICAID ==
[~2024-12-11] VITALS: Ht 167.6 cm; Wt 104.3 kg
[~2024-12-11 20:17] MED LIST changes: -ESCI-8 PO; +OLAN10TA26 PO; -OLAN10TA74 PO
[2024-12-12] MEDS: ZOLPIDEM TARTRATE 10 MG TABLET PO PRN (00:06)
[2024-12-12 01:54] VITALS: BP 130/94; PULSE 97; RESP 18; TEMP 98.7; O2SAT 99
[2024-12-12] MEDS ORDERED: MAG HYDROX/ALUMINUM HYD/SIMETH ES 30 ML SUSPENSION UDCUP PO PRN (06:15)
[2024-12-12] MEDS ORDERED: IBUPROFEN 400 MG TABLET PO PRN (06:15)
[2024-12-12] MEDS ORDERED: LOPERAMIDE HCL 2 MG CAPSULE PO PRN (06:15)
[2024-12-12] MEDS ORDERED: DOCUSATE SODIUM 100 MG CAPSULE PO PRN (06:15)
[2024-12-12] MEDS ORDERED: ALBUTEROL SULFATE HFA 90 MCG/PUFF 8 GM INHALER IH PRN (06:15)
[2024-12-12] MEDS ORDERED: ACETAMINOPHEN 325 MG TABLET PO PRN (06:15)
[2024-12-12] MEDS ORDERED: PETROLATUM,WHITE 28 GM JELLY TP PRN (06:15)
[2024-12-12] MEDS ORDERED: ONDANSETRON 4 MG TABLET PO PRN (06:15)
[2024-12-12] MEDS ORDERED: MAGNESIUM HYDROXIDE SUSPENSION 30 ML UDCUP PO PRN (06:15)
[2024-12-12] MEDS ORDERED: GuaiFENesin/D-METHORPHAN [SUGAR-FREE] 200-20MG/10 ML SYRUP UDCUP PO PRN (06:15)
[2024-12-12 08:41] VITALS: BP 100/68; PULSE 75; RESP 17; TEMP 97.6; O2SAT 99
[2024-12-12] MEDS: DIVALPROEX SODIUM 500 MG ER TABLET PO SCH (12:53)
[2024-12-12 20:12] VITALS: BP 133/89; PULSE 80; RESP 18; TEMP 97.4; O2SAT 99
[2024-12-13 08:22] VITALS: BP 100/64; PULSE 74; RESP 17; TEMP 97.7; O2SAT 98
[2024-12-13 09:20] LABS: CHOL/HDL RATIO 4.9 (4.2-7.3); LDL CHOL (CALC.) 121.0 mg/dL (0-130)
[2024-12-13 20:12] VITALS: BP 114/84; PULSE 83; RESP 17; TEMP 97.6; O2SAT 98
[2024-12-14 08:33] VITALS: BP 111/73; PULSE 63; RESP 17; TEMP 98.3; O2SAT 99
[2024-12-14 20:37] VITALS: BP 105/67; PULSE 80; RESP 18; TEMP 98.6; O2SAT 100
[2024-12-15 08:35] VITALS: BP 94/64; PULSE 70; RESP 16; TEMP 97.2; O2SAT 98
[2024-12-15 20:40] VITALS: BP 124/76; PULSE 83; RESP 18; TEMP 98.3; O2SAT 97
[2024-12-16 08:43] VITALS: BP 106/61; PULSE 80; RESP 19; TEMP 98; O2SAT 97
[2024-12-16 09:59] LABS: APPEARANCE,URINE CLEAR (CLEAR); GLUCOSE, URINE (UA) NEGATIVE (NEGATIVE); LEUKOCYTE ESTERASE ,URINE NEGATIVE (NEGATIVE); NITRATE,URINE NEGATIVE (NEGATIVE); OCCULT BLOOD,URINE NEGATIVE (NEGATIVE); PH,URINE DRUG SCREEN 6.5 (5.0-8.0); SPECIFIC GRAVITIY, URINE 1.018 (1.003-1.030)
[2024-12-16 10:06] LABS: AMPHET/METH SCREEN,URINE NEGATIVE (NEGATIVE); BARBITURATE SCREEN, URINE POSITIVE (NEGATIVE); CANNABINOID SCREEN,URINE NEGATIVE (NEGATIVE); COCAINE SCREEN,URINE NEGATIVE (NEGATIVE); METHADONE SCREEN, URINE NEGATIVE (NEGATIVE)
[2024-12-16 10:20] LABS: ALCOHOL, URINE DRUG SCREEN NEGATIVE (NEGATIVE)
[2024-12-16 20:28] VITALS: BP 113/78; PULSE 74; RESP 18; TEMP 98.2; O2SAT 96
[2024-12-17 08:06] VITALS: BP 111/66; PULSE 73; RESP 16; TEMP 98.6; O2SAT 95
[2024-12-17 20:45] VITALS: BP 120/75; PULSE 89; RESP 17; TEMP 97.8; O2SAT 97
[2024-12-18 08:46] VITALS: BP 102/64; PULSE 79; RESP 17; TEMP 98.3; O2SAT 100
[2024-12-18] MEDS: NICOTINE 14 MG/24 HOUR PATCH TD PRN (17:43)
[2024-12-18 20:20] VITALS: BP 104/74; PULSE 87; RESP 18; TEMP 98.1; O2SAT 96
[2024-12-19 08:32] VITALS: BP 102/60; PULSE 80; RESP 18; TEMP 97.3; O2SAT 99
[2024-12-19 20:11] VITALS: BP 107/80; PULSE 89; RESP 18; TEMP 98.2; O2SAT 98
[2024-12-19] MEDS: DIVALPROEX SODIUM 500 MG ER TABLET PO SCH (20:33)
[2024-12-20] MEDS: TUBERCULIN, PURIFIED PROTEIN DERIVATIVE 5 TU/0.1 ML SYRINGE ID ONE (07:34)
[2024-12-20 08:57] VITALS: BP 105/75; PULSE 75; RESP 16; TEMP 97.7; O2SAT 97
[2024-12-20 20:38] VITALS: BP 103/80; PULSE 86; RESP 17; TEMP 97.8; O2SAT 97
[2024-12-21 08:35] VITALS: BP 101/61; PULSE 69; RESP 17; TEMP 97.9; O2SAT 97
[2024-12-21 09:30] LABS: PLATELET COUNT (AUTO) 245 K/uL (150-450); RED BLOOD CELL COUNT(AUTO) 5.14 MIL/uL (4.50-5.90); RED CELL DISTRIBUTION WIDTH 14.0 % (11.5-14.5); WHITE BLOOD COUNT (AUTO) 7.9 K/uL (4.5-11.0)
[2024-12-21 12:53] LABS: CREATININE 0.86 mg/dL (0.60-1.30); GLOMERULAR FILTR. RATE CALC > 60 mL/min (>60); SODIUM SERUM 140 mmol/L (136-145); UREA NITROGEN, BLOOD 12 mg/dL (7-18)
[2024-12-21 12:54] LABS: ASPARTATE AMINOTRANSFERASE 31 U/L (15-37); CHOL/HDL RATIO 4.7 (4.2-7.3); LDL CHOL (CALC.) 103 mg/dL (0-130); PHOSPHORUS 4.2 mg/dL (2.5-4.9); TOTAL PROTEIN, SERUM 6.7 g/dL (6.4-8.2)
[2024-12-21 13:16] LABS: CALCIUM, TOTAL 8.3 mg/dL (8.8-10.5); GLUCOSE,RANDOM 71 mg/dL (70-110)
[2024-12-21] MEDS: NICOTINE POLACRILEX 2 MG LOZENGE PO PRN (19:52)
[2024-12-21 20:53] VITALS: BP 111/84; PULSE 97; RESP 18; TEMP 97.8; O2SAT 99
[2024-12-22 08:40] VITALS: BP 115/85; PULSE 80; RESP 15; TEMP 97.2; O2SAT 100
[2024-12-22 20:13] VITALS: BP 107/71; PULSE 87; RESP 19; TEMP 98.3; O2SAT 100
[2024-12-23 08:42] VITALS: BP 132/85; PULSE 82; RESP 18; TEMP 97.5; O2SAT 99
[2024-12-23 20:20] VITALS: BP 105/81; PULSE 88; RESP 18; TEMP 98.1; O2SAT 99
[2024-12-24 08:24] VITALS: BP 120/89; PULSE 82; RESP 18; TEMP 97.2; O2SAT 98
[2024-12-24 20:33] VITALS: BP 114/80; PULSE 84; RESP 18; TEMP 98; O2SAT 98
[2024-12-25 08:16] VITALS: BP 107/80; PULSE 70; RESP 18; TEMP 97.9; O2SAT 100
[2024-12-25 20:15] VITALS: BP 105/82; PULSE 88; RESP 18; TEMP 98; O2SAT 97
[2024-12-26 08:40] VITALS: BP 121/86; PULSE 76; RESP 17; TEMP 97.3; O2SAT 96
[2024-12-26] MEDS: SERTRALINE HCL 50 MG TABLET PO SCH (17:24)
[2024-12-26 20:20] VITALS: BP 122/79; PULSE 91; RESP 18; TEMP 98.1; O2SAT 97
[2024-12-27 08:20] VITALS: BP 110/70; PULSE 96; RESP 18; TEMP 97.3; O2SAT 96
[2024-12-27 20:13] VITALS: BP 115/82; PULSE 75; RESP 18; TEMP 97.9; O2SAT 100
[2024-12-28 08:33] VITALS: BP 107/71; PULSE 76; RESP 17; TEMP 98.1; O2SAT 95
[2024-12-28 20:14] VITALS: BP 118/88; PULSE 76; RESP 18; TEMP 98.2; O2SAT 97
[2024-12-29 08:09] VITALS: BP 130/86; PULSE 93; RESP 17; TEMP 98.1; O2SAT 100
[2024-12-29 20:31] VITALS: BP 102/67; PULSE 82; RESP 18; TEMP 98; O2SAT 100
[2024-12-30 08:52] VITALS: BP 114/91; PULSE 76; RESP 17; TEMP 97.6; O2SAT 98
[2024-12-30 20:29] VITALS: BP 112/78; PULSE 74; RESP 18; TEMP 98.1; O2SAT 98
[2024-12-31 08:26] VITALS: BP 116/88; PULSE 86; RESP 17; TEMP 97.7; O2SAT 97
[2024-12-31 20:47] VITALS: BP 126/78; PULSE 79; RESP 17; TEMP 97.7; O2SAT 98
[2025-01-01 08:50] VITALS: BP 122/82; PULSE 74; RESP 16; TEMP 97.9; O2SAT 95
[2025-01-01 21:10] VITALS: BP 119/81; PULSE 62; RESP 18; TEMP 98.2; O2SAT 97
[2025-01-02 08:33] VITALS: BP 107/79; PULSE 63; RESP 17; TEMP 97.7; O2SAT 96
[2025-01-02 20:30] VITALS: BP 109/86; PULSE 61; RESP 18; TEMP 98.1; O2SAT 99
[2025-01-03 09:35] VITALS: BP 126/71; PULSE 63; RESP 18; TEMP 97; O2SAT 97
[2025-01-03] MEDS ORDERED: SERT-158 PO (15:33)
[2025-01-03] MEDS ORDERED: OLAN10TA74 PO (15:34)
== END 2025-01-03 20:30 | disposition home or self-care (01) | DRG 750 ==
LOC: B2S 21:09
PROVIDERS: ADMIT Psychiatry & Neurology Psychiatry; ATTEND Psychiatry & Neurology Psychiatry
PROC: GZHZZZZ Group Psychotherapy (ICD-10-PCS; principal; 2024-12-12)
PROC: GZ52ZZZ Individual Psychotherapy, Cognitive (ICD-10-PCS; 2024-12-20)
DX: F20.0 Paranoid schizophrenia (principal); R45.851 Suicidal ideations; E66.9 Obesity, unspecified; F43.12 Post-traumatic stress disorder, chronic; Z68.37 Body mass index [BMI] 37.0-37.9, adult; G47.00 Insomnia, unspecified; K59.00 Constipation, unspecified; Z59.00 Homelessness unspecified; Z72.0 Tobacco use; Z79.899 Other long term (current) drug therapy; Z91.128 Patient's intentional underdosing of medication regimen for other reason
CPT/HCPCS: 80053; 80061; 80164; 80307; 81003; 83036; 83735; 84100; 84443; 85025

== ENCOUNTER 2025-02-07 02:06 | Emergency (ER) | payer MEDICAID ==
[~2025-02-07] VITALS: Ht 167.6 cm; Wt 102.3 kg
[~2025-02-07 02:06] MED LIST changes: -OLAN10TA26 PO; +OLAN10TA74 PO; +SERT-158 PO
[2025-02-07 02:09] VITALS: BP 140/83; PULSE 86; RESP 18; TEMP 98.2; O2SAT 98
[2025-02-07] MEDS ORDERED: OFLO5DRO OU (04:55)
[2025-02-07] MEDS: ACETAMINOPHEN 325 MG TABLET PO ONE (05:22)
== END 2025-02-07 05:30 | disposition home or self-care (01) ==
LOC: EMS 02:15
DX: H10.9 Unspecified conjunctivitis (principal); F15.90 Other stimulant use, unspecified, uncomplicated; F43.10 Post-traumatic stress disorder, unspecified; Z79.899 Other long term (current) drug therapy; Z86.19 Personal history of other infectious and parasitic diseases
CPT/HCPCS: 99283

== ENCOUNTER 2025-02-07 11:32 | Inpatient (IN) | payer MEDICAID ==
[~2025-02-07] VITALS: Ht 167.6 cm; Wt 99.3 kg
[~2025-02-07 11:32] MED LIST changes: +OFLO5DRO OU
[2025-02-07 13:20] LABS: GLUCOMETER DEV NAME(LOC) POC.BV; POC SARS-COV2 AG, FIA NEGATIVE (NEGATIVE)
[2025-02-07] MEDS: OFLOXACIN 0.3% 5 ML OPHTHALMIC SOLUTION OU SCH (16:12)
[2025-02-07 16:45] VITALS: BP 124/100; PULSE 100; RESP 18; TEMP 97.3; O2SAT 99
[2025-02-07] MEDS ORDERED: OMEPRAZOLE 20 MG CAPSULE PO PRN (19:30)
[2025-02-07] MEDS ORDERED: LOPERAMIDE HCL 2 MG CAPSULE PO PRN (19:30)
[2025-02-07] MEDS ORDERED: BENZOCAINE/MENTHOL [CEPACOL] LOZENGE PO PRN (19:30)
[2025-02-07] MEDS ORDERED: ONDANSETRON 4 MG TABLET PO PRN (19:30)
[2025-02-07] MEDS ORDERED: IBUPROFEN 600 MG TABLET PO PRN (19:30)
[2025-02-07] MEDS ORDERED: DOCUSATE SODIUM 100 MG CAPSULE PO PRN (19:30)
[2025-02-07] MEDS ORDERED: ACETAMINOPHEN 325 MG TABLET PO PRN (19:30)
[2025-02-07] MEDS ORDERED: MAGNESIUM HYDROXIDE SUSPENSION 30 ML UDCUP PO PRN (19:30)
[2025-02-07] MEDS ORDERED: ALBUTEROL SULFATE HFA 90 MCG/PUFF 8 GM INHALER IH PRN (19:30)
[2025-02-07] MEDS ORDERED: MAG HYDROX/ALUMINUM HYD/SIMETH ES 30 ML SUSPENSION UDCUP PO PRN (19:30)
[2025-02-07] MEDS ORDERED: PETROLATUM,WHITE 28 GM JELLY TP PRN (19:30)
[2025-02-07] MEDS ORDERED: BACITRACIN 28 GM OINTMENT TP PRN (19:30)
[2025-02-07] MEDS: ZOLPIDEM TARTRATE 10 MG TABLET PO PRN (20:17)
[2025-02-07 20:53] VITALS: BP 138/99; PULSE 98; RESP 19; TEMP 98; O2SAT 99
[2025-02-08 08:08] VITALS: BP 119/80; PULSE 86; RESP 17; TEMP 98.1; O2SAT 98
[2025-02-08 09:19] LABS: PLATELET COUNT (AUTO) 261 K/uL (150-450); RED BLOOD CELL COUNT(AUTO) 5.02 MIL/uL (4.50-5.90); RED CELL DISTRIBUTION WIDTH 14.1 % (11.5-14.5); WHITE BLOOD COUNT (AUTO) 8.5 K/uL (4.5-11.0)
[2025-02-08 09:48] LABS: ASPARTATE AMINOTRANSFERASE 40 U/L (15-37); CALCIUM, TOTAL 8.7 mg/dL (8.8-10.5); CHOL/HDL RATIO 4.1 (4.2-7.3); CREATININE 0.68 mg/dL (0.60-1.30); GLOMERULAR FILTR. RATE CALC > 60 mL/min (>60); GLUCOSE,RANDOM 83 mg/dL (70-110); LDL CHOL (CALC.) 116 mg/dL (0-130); SODIUM SERUM 142 mmol/L (136-145); TOTAL PROTEIN, SERUM 7.6 g/dL (6.4-8.2); UREA NITROGEN, BLOOD 10 mg/dL (7-18)
[2025-02-08 20:08] VITALS: BP 109/71; PULSE 86; RESP 16; TEMP 98.8; O2SAT 100
[2025-02-08] MEDS: GENTAMICIN SULFATE 0.3% OPHTHALMIC SOLUTION 5 ML OU SCH (20:50)
[2025-02-09 08:19] VITALS: BP 114/88; PULSE 98; RESP 16; TEMP 97.8; O2SAT 100
[2025-02-09] MEDS: DIVALPROEX SODIUM 500 MG ER TABLET PO SCH (09:56)
[2025-02-09] MEDS: SERTRALINE HCL 50 MG TABLET PO SCH (09:56)
[2025-02-09 20:14] VITALS: BP 113/72; PULSE 99; RESP 18; TEMP 97.9; O2SAT 99
[2025-02-10 08:03] VITALS: BP 115/78; PULSE 87; RESP 18; TEMP 97.7; O2SAT 95
[2025-02-10 20:06] VITALS: BP 110/60; PULSE 75; RESP 18; TEMP 98.7; O2SAT 98
[2025-02-11 08:18] VITALS: BP 112/68; PULSE 82; RESP 18; TEMP 98.6; O2SAT 98
[2025-02-11 20:08] VITALS: BP 133/94; PULSE 98; RESP 18; TEMP 97.3; O2SAT 97
[2025-02-12 08:20] VITALS: BP 105/72; PULSE 80; RESP 18; TEMP 97.7; O2SAT 95
[2025-02-12 21:20] VITALS: BP 178/147; PULSE 136; RESP 17; TEMP 97.6; O2SAT 98
[2025-02-12 22:20] VITALS: BP 137/94; PULSE 100; RESP 18; O2SAT 98
[2025-02-13] MEDS: METOPROLOL TARTRATE 25 MG TABLET PO SCH (09:47)
[2025-02-13 20:40] VITALS: BP 141/98; PULSE 116; RESP 18; TEMP 97.7; O2SAT 98
[2025-02-14 08:20] VITALS: BP 150/97; PULSE 102; RESP 18; TEMP 98.3; O2SAT 100
[2025-02-14 09:29] LABS: APPEARANCE,URINE CLEAR (CLEAR); GLUCOSE, URINE (UA) NEGATIVE (NEGATIVE); LEUKOCYTE ESTERASE ,URINE NEGATIVE (NEGATIVE); NITRATE,URINE NEGATIVE (NEGATIVE); OCCULT BLOOD,URINE NEGATIVE (NEGATIVE); PH,URINE DRUG SCREEN 6.0 (5.0-8.0); SPECIFIC GRAVITIY, URINE 1.006 (1.003-1.030)
[2025-02-14 09:40] LABS: AMPHET/METH SCREEN,URINE POSITIVE (NEGATIVE); BARBITURATE SCREEN, URINE NEGATIVE (NEGATIVE); CANNABINOID SCREEN,URINE NEGATIVE (NEGATIVE); COCAINE SCREEN,URINE NEGATIVE (NEGATIVE); METHADONE SCREEN, URINE NEGATIVE (NEGATIVE)
[2025-02-14 09:44] LABS: ALCOHOL, URINE DRUG SCREEN NEGATIVE (NEGATIVE)
[2025-02-14] MEDS ORDERED: METO25 PO (15:31)
== END 2025-02-14 17:11 | disposition home or self-care (01) | DRG 761 ==
LOC: B3A 12:58
PROVIDERS: ADMIT Psychiatry & Neurology Child & Adolescent Psychiatry; ATTEND Psychiatry & Neurology Child & Adolescent Psychiatry
PROC: GZ56ZZZ Individual Psychotherapy, Supportive (ICD-10-PCS; principal; 2025-02-08)
PROC: GZ58ZZZ Individual Psychotherapy, Cognitive-Behavioral (ICD-10-PCS; 2025-02-08)
PROC: GZHZZZZ Group Psychotherapy (ICD-10-PCS; 2025-02-08)
DX: F25.1 Schizoaffective disorder, depressive type (principal); B18.2 Chronic viral hepatitis C; Z20.822 Contact with and (suspected) exposure to COVID-19; E66.9 Obesity, unspecified; F41.9 Anxiety disorder, unspecified; G47.00 Insomnia, unspecified; H10.9 Unspecified conjunctivitis; I10 Essential (primary) hypertension; K59.00 Constipation, unspecified; Z72.0 Tobacco use; Z68.35 Body mass index [BMI] 35.0-35.9, adult
CPT/HCPCS: 80053; 80061; 80164; 80307; 81003; 83036; 84436; 84443; 85025; 86592

== ENCOUNTER 2025-02-19 12:14 | Inpatient (IN) | payer MEDICAID ==
[~2025-02-19] VITALS: Ht 167.6 cm; Wt 94.8 kg
[~2025-02-19 12:14] MED LIST changes: +METO25 PO; -OFLO5DRO OU
[2025-02-19 13:45] VITALS: BP 137/98; PULSE 121; RESP 18; TEMP 98.4; O2SAT 99
[2025-02-19 14:15] VITALS: PULSE 113
[2025-02-19 16:07] VITALS: BP 135/71; PULSE 100; RESP 16; TEMP 98.4; O2SAT 98
[2025-02-19 16:15] VITALS: PULSE 113
[2025-02-19] MEDS ORDERED: INFLUENZA VIRUS VACCINE TVS (6MO+) 2025-26/PF 45 MCG/0.5 ML SYRINGE IM. ONE (16:45)
[2025-02-19] MEDS: TAMSULOSIN HCL 0.4 MG CAPSULE PO SCH (19:17)
[2025-02-19] MEDS: ZOLPIDEM TARTRATE 10 MG TABLET PO PRN (20:23)
[2025-02-20] MEDS ORDERED: IBUPROFEN 400 MG TABLET PO PRN (06:00)
[2025-02-20] MEDS ORDERED: LOPERAMIDE HCL 2 MG CAPSULE PO PRN (06:00)
[2025-02-20] MEDS ORDERED: PETROLATUM,WHITE 28 GM JELLY TP PRN (06:00)
[2025-02-20] MEDS ORDERED: ALBUTEROL SULFATE HFA 90 MCG/PUFF 8 GM INHALER IH PRN (06:00)
[2025-02-20] MEDS ORDERED: GuaiFENesin/D-METHORPHAN [SUGAR-FREE] 200-20MG/10 ML SYRUP UDCUP PO PRN (06:00)
[2025-02-20] MEDS ORDERED: ONDANSETRON 4 MG TABLET PO PRN (06:00)
[2025-02-20] MEDS ORDERED: DOCUSATE SODIUM 100 MG CAPSULE PO PRN (06:00)
[2025-02-20] MEDS ORDERED: NICOTINE 14 MG/24 HOUR PATCH TD PRN (06:00)
[2025-02-20] MEDS ORDERED: MAG HYDROX/ALUMINUM HYD/SIMETH ES 30 ML SUSPENSION UDCUP PO PRN (06:00)
[2025-02-20] MEDS ORDERED: MAGNESIUM HYDROXIDE SUSPENSION 30 ML UDCUP PO PRN (06:00)
[2025-02-20 08:16] VITALS: BP 143/98; PULSE 99; RESP 18; TEMP 97.9; O2SAT 98
[2025-02-20 08:20] LABS: PLATELET COUNT (AUTO) 260 K/uL (150-450); RED BLOOD CELL COUNT(AUTO) 4.85 MIL/uL (4.50-5.90); RED CELL DISTRIBUTION WIDTH 13.8 % (11.5-14.5); WHITE BLOOD COUNT (AUTO) 6.8 K/uL (4.5-11.0)
[2025-02-20] MEDS: METOPROLOL TARTRATE 25 MG TABLET PO SCH (08:21)
[2025-02-20 08:43] LABS: ASPARTATE AMINOTRANSFERASE 47 U/L (15-37); CALCIUM, TOTAL 7.9 mg/dL (8.8-10.5); CHOL/HDL RATIO 3.5 (4.2-7.3); CREATININE 0.92 mg/dL (0.60-1.30); GLOMERULAR FILTR. RATE CALC > 60 mL/min (>60); GLUCOSE,RANDOM 91 mg/dL (70-110); LDL CHOL (CALC.) 96 mg/dL (0-130); SODIUM SERUM 138 mmol/L (136-145); TOTAL PROTEIN, SERUM 7.2 g/dL (6.4-8.2); UREA NITROGEN, BLOOD 15 mg/dL (7-18)
[2025-02-20 11:17] VITALS: RESP 18
[2025-02-20] MEDS: ACETAMINOPHEN 325 MG TABLET PO PRN (11:17)
[2025-02-20 12:17] VITALS: RESP 18
[2025-02-20] MEDS: LORazepam 2 MG/ML VIAL IM ONE (13:53)
[2025-02-20] MEDS: DIVALPROEX SODIUM 500 MG ER TABLET PO SCH (17:20)
[2025-02-20 20:09] VITALS: RESP 18
[2025-02-21 08:24] VITALS: BP 95/66; PULSE 68; RESP 17; TEMP 97.4; O2SAT 99
[2025-02-21] MEDS: SERTRALINE HCL 50 MG TABLET PO SCH (09:50)
[2025-02-21 16:32] VITALS: BP 118/76; RESP 17; O2SAT 99
[2025-02-21 20:05] VITALS: BP_SYST 118; BP_SYST 125; BP_DIAS 74; BP_DIAS 81; PULSE 78; PULSE 84; RESP 17; RESP 18; TEMP 98.2; O2SAT 97; O2SAT 98
[2025-02-22 08:05] VITALS: BP 100/62; PULSE 61; RESP 17; TEMP 98.6; O2SAT 96
[2025-02-22 09:29] LABS: CHOL/HDL RATIO 4.0 (4.2-7.3); LDL CHOL (CALC.) 84.0 mg/dL (0-130)
== END 2025-02-22 11:10 | disposition left against medical advice (07) | DRG 761 ==
LOC: B2S 13:42
PROVIDERS: ADMIT Psychiatry & Neurology Child & Adolescent Psychiatry; ATTEND Psychiatry & Neurology Child & Adolescent Psychiatry
PROC: GZ58ZZZ Individual Psychotherapy, Cognitive-Behavioral (ICD-10-PCS; principal; 2025-02-20)
PROC: GZ56ZZZ Individual Psychotherapy, Supportive (ICD-10-PCS; 2025-02-20)
DX: F25.0 Schizoaffective disorder, bipolar type (principal); E66.01 Morbid (severe) obesity due to excess calories; F10.10 Alcohol abuse, uncomplicated; I10 Essential (primary) hypertension; Z68.33 Body mass index [BMI] 33.0-33.9, adult; Z53.29 Procedure and treatment not carried out because of patient's decision for other reasons; K59.00 Constipation, unspecified; N40.0 Benign prostatic hyperplasia without lower urinary tract symptoms; F41.9 Anxiety disorder, unspecified; G47.00 Insomnia, unspecified; Z91.148 Patient's other noncompliance with medication regimen for other reason; Z79.899 Other long term (current) drug therapy
CPT/HCPCS: 80053; 80061; 83036; 84439; 84443; 85025; 87081; J1200; J1630; J2060